=== PATIENT | female | born 1960 | race Caucasian/White ===

== ENCOUNTER 2019-07-26 05:13 | Inpatient (IN) ==
--- NOTE | 2019-07-26 05:33 | PROVIDER DOCUMENTATION ---
HPI-Respiratory General - General Chief Complaint: Cough Stated Complaint: cough/high blood sugar Time Seen by Provider: 07/26/19 05:16 Source: patient Allergies/Adverse Reactions: Patient Allergies Allergy/AdvReac Type Severity Reaction Status Date / Time aspirin Allergy Unknown Verified 07/26/19 06:21 cephalexin [From Keflex] Allergy Unknown Verified 07/26/19 06:21 codeine Allergy Unknown Verified 07/26/19 06:21 Penicillins Allergy Unknown Verified 07/26/19 06:21 perindopril [From Aceon] Allergy Unknown Verified 07/26/19 06:21 propoxyphene [From Darvon] Allergy Unknown Verified 07/26/19 06:21 pseudoephedrine Allergy Unknown Verified 07/26/19 06:21 [From Sudafed] sitagliptin [From Januvia] Allergy Unknown Verified 07/26/19 06:21 Sulfa (Sulfonamide Allergy Unknown Verified 07/26/19 06:21 Antibiotics) Home Medications: Home Medication List Medication Instructions Recorded Confirmed Last Taken Type ATORVAstatin [Lipitor] 10 mg PO DAILY 07/26/19 07/26/19 Unknown History Albuterol Sulfate [Ventolin Hfa] 18 gm INHALATION PRN PRN 07/26/19 07/26/19 Unknown History Apixaban [Eliquis] 5 mg PO BID 07/26/19 07/26/19 Unknown History Baclofen 20 mg PO QHS 07/26/19 07/26/19 Unknown History Budesonide/Formoterol Fumarate 10.2 gm INHALATION BID 07/26/19 07/26/19 Unknown History [Symbicort 160-4.5 Mcg Inhaler] Furosemide 40 mg PO DAILY 07/26/19 07/26/19 Unknown History Gabapentin 600 mg PO 5XDAY 07/26/19 07/26/19 Unknown History Insulin Glargine [Basaglar] 100 unit SUBQ DIRECTED 07/26/19 07/26/19 Unknown History Insulin Lispro [Admelog Solostar] 100 unit SQ DIRECTED 07/26/19 07/26/19 U nknown History Magnesium 250 mg PO DAILY 07/26/19 07/26/19 Unknown History Metoprolol Succinate E.r. [Toprol 12.5 mg PO DAILY 07/26/19 07/26/19 Unknown History Xl] Pantoprazole [Protonix] 40 mg PO DAILY@0700 07/26/19 07/26/19 Unknown History Potassium Chloride E.r. [Klor-Con] 10 meq PO BID 07/26/19 07/26/19 Unknown History Sacubitril/Valsartan [Entresto 49 1 ea PO BID 07/26/19 07/26/19 Unknown History mg-51 mg Tablet] Spironolactone 25 mg PO DAILY 07/26/19 07/26/19 Unknown History Sumatriptan Succinate 100 mg PO PRN PRN 07/26/19 07/26/19 Unknown History Topiramate 15 mg PO QAM 07/26/19 07/26/19 Unknown History Topiramate 50 mg PO BID 07/26/19 07/26/19 Unknown History - History of Present Illness-Resp Nature of Presenting Problem: Patient states that she has had a cough for the past 3 days. She has had fever. she has COPD but doesn't have a nebulizer. Her sugar has been high. She has been short of breath. Quality of Pain: reports: pressure Severity in ED: reports: moderate Onset/Duration: reports: 3 days ago Timing: reports: still present Context: denies: recent foreign travel, insect bite (possible tick), recent chemotherapy, multiple patients with similar complaints, recent URI, out of meds, sports/exercise, aspiration/choking, other Exposure: reports: unknown cause Cough Quality/Degree: reports: moderate, dry cough Episode Frequency: frequent episodes Current Respiratory Medication Therapy: Initiated none Modifying Factors: improves with: nothing Associated Symptoms: reports: fever/chills, flu-like symptoms, headache Similar Symptoms Previously?: No Recently seen or treated by another doctor?: No Review of Systems - Adult - REVIEW OF SYSTEMS - ADULT Constitutional: reports: fever Eyes: reports: no symptoms reported Ears, Nose, Mouth & Throat: reports: no symptoms reported Cardiovascular: reports: no symptoms reported Respiratory: reports: see HPI, cough, shortness of breath, wheezing Gastrointestinal: reports: no symptoms reported Genitourinary: reports: no symptoms reported Musculoskeletal: reports: no symptoms reported Integumentary: reports: no symptoms reported Neurological: reports: no symptoms reported Psychiatric: reports: no symptoms reported Hematologic/Lymphatic: reports: no symptoms reported Allergic/Immunologic: reports: no symptoms reported Past History - Adult - PAST MEDICAL HISTORY-ADULT Review of Records: reports: Old Records Reviewed, Nursing Assessment Review Physical Exam-General - CONSTITUTIONAL General Appearance: alert, mild distress - EYES Eyes: PERRL/EOMI, pink conjunctivae - HEAD, EARS, NOSE, MOUTH & THROAT HENMT: normocephalic/atraumatic, moist mucous membranes, normal ENT inspection - NECK Neck: non-tender, full range of motion, supple, normal inspection - RESPIRATORY Respiratory: chest non-tender, rales, rhonchi, wheezing - CARDIOVASCULAR Cardiovascular: normal peripheral pulses, regular rate, rhythm, no edema, no gallop - GASTROINTESTINAL (ABDOMEN) Abdominal Exam: normal bowel sounds, soft - LYMPHATIC Lymphatic: no adenopathy - MUSCULOSKELETAL Back Exam: normal inspection Extremity: normal range of motion - SKIN Integumentary: normal color, normal turgor - NEUROLOGIC Neurologic: grossly normal - PSYCHIATRIC Psych/Mental Status: normal mood/affect Progress - PLAN OF CARE/RESULTS Progress/Plan/Lab Results: Vital Signs - 8 hr 07/26/19 05:22 07/26/19 05:23 07/26/19 05:57 Temperature 98.3 F Pulse Rate 94 H 107 H Respiratory Rate 24 20 Blood Pressure 172/79 172/79 O2 Sat by Pulse Oximetry 86 L 92 L 91 L 07/26/19 05:50 - Final Sputum 07/26/19 05:52 Influenza Screen - Final Nasopharyngeal Laboratory Results - last 24 hr 07/26/19 07/26/19 07/26/19 05:21 05:36 05:45 WBC 9.93 RBC 4.37 Hgb 12.5 Hct 37.5 MCV 85.8 MCH 28.6 MCHC 33.3 RDW Std Deviation 12.4 Plt Count 321 MPV 11.0 H Immature Gran % (Auto) 0.3 Neut % (Auto) 68.9 Lymph % (Auto) 19.9 L [place] % (Auto) 9.4 H Eos % (Auto) 1.3 Baso % (Auto) 0.2 Immature Gran # (Auto) 0.03 Neut # (Auto) 6.84 H Lymph # (Auto) 1.98 [place] # (Auto) 0.93 H Eos # (Auto) 0.13 Baso # (Auto) 0.02 PT INR PTT (Actin FS) Specimen Type ARTERIAL Sample Site R RADIAL pH 7.37 pCO2 43 pO2 76 HCO3 24.4 Base Excess -0.6 Oxyhemoglobin 93.7 L ABG O2 Sat (Calculated) 17.4 ABG O2 Saturation 96.8 ABG Carboxyhemoglobin 2.00 ABG Methemoglobin 1.1 Yogi Test YES A-a O2 Difference 227.0 Total Hemoglobin 13.2 Lactate 2.10 Liter Flow 10.0 Blood Gas Modality COOL AEROSOL FiO2 % 50.0 Sodium Potassium Chloride Carbon Dioxide Anion Gap BUN Creatinine Estimated GFR/1.73 m2 BUN/Creatinine Ratio Glucose POC Glucose 330 H Calculated Osmolality Calcium Magnesium Total Bilirubin AST ALT Alkaline Phosphatase Creatine Kinase Troponin T High Sens Csd-N-Emmoodpgpio Pept Total Protein Albumin Globulin Albumin/Globulin Ratio Plasma Lactate Urine Source Urine Color Urine Turbidity Urine pH Ur Specific [place] Urine Protein Ur Glucose (Stick) Ur Ketones (Stick) Urine Blood Urine Nitrite Urine Bilirubin Urobilinogen Dipstick Urine Leukocytes Urine WBC (Auto) Urine RBC (Auto) U Epithel Cells (Auto) Urine Bacteria (Auto) Urine Opiates Screen Ur Oxycodone Screen Ur Methadone, Qual Ur Barbiturates Screen Ur Phencyclidine Scrn Ur Amphetamines Screen U Benzodiazepines Scrn Urine Cocaine Screen U Cannabinoids Screen 07/26/19 07/26/19 07/26/19 05:45 05:45 05:45 WBC RBC Hgb Hct MCV MCH MCHC RDW Std Deviation Plt Count MPV Immature Gran % (Auto) Neut % (Auto) Lymph % (Auto) [place] % (Auto) Eos % (Auto) Baso % (Auto) Immature Gran # (Auto) Neut # (Auto) Lymph # (Auto) [place] # (Auto) Eos # (Auto) Baso # (Auto) PT 14.1 INR 1.07 PTT (Actin FS) 23.2 Specimen Type Sample Site pH pCO2 pO2 HCO3 Base Excess Oxyhemoglobin ABG O2 Sat (Calculated) ABG O2 Saturation ABG Carboxyhemoglobin ABG Methemoglobin Yogi Test A-a O2 Difference Total Hemoglobin Lactate Liter Flow Blood Gas Modality FiO2 % Sodium 138 Potassium 4.7 Chloride 99 Carbon Dioxide 25 Anion Gap 14 BUN 17 Creatinine 0.5 Estimated GFR/1.73 m2 > 60 BUN/Creatinine Ratio 34 Glucose 344 H POC Glucose Calculated Osmolality 291 Calcium 9.1 Magnesium 1.6 Total Bilirubin 1.96 H AST 20 ALT 23 Alkaline Phosphatase 144 H Creatine Kinase 86 Troponin T High Sens 16 Lcr-U-Blewfeqklpm Pept Total Protein 6.0 L Albumin 3.6 Globulin 2.4 Albumin/Globulin Ratio 1.5 Plasma Lactate Urine Source Urine Color Urine Turbidity Urine pH Ur Specific [place] Urine Protein Ur Glucose (Stick) Ur Ketones (Stick) Urine Blood Urine Nitrite Urine Bilirubin Urobilinogen Dipstick Urine Leukocytes Urine WBC (Auto) Urine RBC (Auto) U Epithel Cells (Auto) Urine Bacteria (Auto) Urine Opiates Screen Ur Oxycodone Screen Ur Methadone, Qual Ur Barbiturates Screen Ur Phencyclidine Scrn Ur Amphetamines Screen U Benzodiazepines Scrn Urine Cocaine Screen U Cannabinoids Screen 07/26/19 07/26/19 07/26/19 05:45 05:45 06:42 WBC RBC Hgb Hct MCV MCH MCHC RDW Std Deviation Plt Count MPV Immature Gran % (Auto) Neut % (Auto) Lymph % (Auto) [place] % (Auto) Eos % (Auto) Baso % (Auto) Immature Gran # (Auto) Neut # (Auto) Lymph # (Auto) [place] # (Auto) Eos # (Auto) Baso # (Auto) PT INR PTT (Actin FS) Specimen Type Sample Site pH pCO2 pO2 HCO3 Base Excess Oxyhemoglobin ABG O2 Sat (Calculated) ABG O2 Saturation ABG Carboxyhemoglobin ABG Methemoglobin Yogi Test A-a O2 Difference Total Hemoglobin Lactate Liter Flow Blood Gas Modality FiO2 % Sodium Potassium Chloride Carbon Dioxide Anion Gap BUN Creatinine Estimated GFR/1.73 m2 BUN/Creatinine Ratio Glucose POC Glucose Calculated Osmolality Calcium Magnesium Total Bilirubin AST ALT Alkaline Phosphatase Creatine Kinase Troponin T High Sens Uim-M-Itoznjlgpxt Pept 5289 H Total Protein Albumin Globulin Albumin/Globulin Ratio Plasma Lactate 1.6 Urine Source CLEAN CATCH Urine Color YELLOW Urine Turbidity CLEAR Urine pH 6.0 Ur Specific [place] 1.041 Urine Protein 30 A Ur Glucose (Stick) >1000 A Ur Ketones (Stick) NEGATIVE Urine Blood NEGATIVE Urine Nitrite NEGATIVE Urine Bilirubin NEGATIVE Urobilinogen Dipstick 4 A Urine Leukocytes MODERATE A Urine WBC (Auto) TNTC A Urine RBC (Auto) <10 U Epithel Cells (Auto) <10 Urine Bacteria (Auto) 1+ Urine Opiates Screen Ur Oxycodone Screen Ur Methadone, Qual Ur Barbiturates Screen Ur Phencyclidine Scrn Ur Amphetamines Screen U Benzodiazepines Scrn Urine Cocaine Screen U Cannabinoids Screen 07/26/19 06:50 WBC RBC Hgb Hct MCV MCH MCHC RDW Std Deviation Plt Count MPV Immature Gran % (Auto) Neut % (Auto) Lymph % (Auto) [place] % (Auto) Eos % (Auto) Baso % (Auto) Immature Gran # (Auto) Neut # (Auto) Lymph # (Auto) [place] # (Auto) Eos # (Auto) Baso # (Auto) PT INR PTT (Actin FS) Specimen Type Sample Site pH pCO2 pO2 HCO3 Base Excess Oxyhemoglobin ABG O2 Sat (Calculated) ABG O2 Saturation ABG Carboxyhemoglobin ABG Methemoglobin Yogi Test A-a O2 Difference Total Hemoglobin Lactate Liter Flow Blood Gas Modality FiO2 % Sodium Potassium Chloride Carbon Dioxide Anion Gap BUN Creatinine Estimated GFR/1.73 m2 BUN/Creatinine Ratio Glucose POC Glucose Calculated Osmolality Calcium Magnesium Total Bilirubin AST ALT Alkaline Phosphatase Creatine Kinase Troponin T High Sens Qbp-G-Ffahinbalne Pept Total Protein Albumin Globulin Albumin/Globulin Ratio Plasma Lactate Urine Source Urine Color Urine Turbidity Urine pH Ur Specific [place] Urine Protein Ur Glucose (Stick) Ur Ketones (Stick) Urine Blood Urine Nitrite Urine Bilirubin Urobilinogen Dipstick Urine Leukocytes Urine WBC (Auto) Urine RBC (Auto) U Epithel Cells (Auto) Urine Bacteria (Auto) Urine Opiates Screen NONE DETECTED Ur Oxycodone Screen NONE DETECTED Ur Methadone, Qual NONE DETECTED Ur Barbiturates Screen NONE DETECTED Ur Phencyclidine Scrn NONE DETECTED Ur Amphetamines Screen NONE DETECTED U Benzodiazepines Scrn NONE DETECTED Urine Cocaine Screen NONE DETECTED U Cannabinoids Screen NONE DETECTED Orders Category Date Time Status Cardiac Monitoring DIRECTED Care 07/26/19 05:28 Active IV Insertion ORDERED Care 07/26/19 05:28 Completed Notify MD of + Sepsis Screen NOW Care 07/26/19 05:28 Active Notify Physician As Ordered Care 07/26/19 05:28 Active Nursing- Obtain EKG once Care 07/26/19 07:26 Active CHEST-1 VIEW [RAD] Stat Exams 07/26/19 05:28 Completed ABG [RESP] Routine Lab 07/26/19 05:36 Completed BLOOD CULTURE [BLDCUL] Stat Lab 07/26/19 05:48 Results CBC WITH DIFF [HEME] Stat Lab 07/26/19 05:45 Completed CK PROFILE [SP CHEM] Stat Lab 07/26/19 05:45 Completed COMPREHENSIVE METABOLIC PANEL [CHEM] Stat Lab 07/26/19 05:45 Completed Flu Swab [INFLUENZA SCREEN A/B] Stat Lab 07/26/19 05:52 Completed LACTATE, PLASMA [CHEM] Lab 07/26/19 05:45 Completed LACTATE, PLASMA [CHEM] Lab 07/26/19 08:30 Uncollected LACTATE, PLASMA [CHEM] Lab 07/26/19 11:30 Uncollected MAGNESIUM [CHEM] Stat Lab 07/26/19 05:45 Completed PRO B-NATRIURETIC PEPTIDE Stat Lab 07/26/19 05:45 Completed PROTIME WITH INR [COAG] Stat Lab 07/26/19 05:45 Completed PTT [COAG] Stat Lab 07/26/19 05:45 Completed SPUTUM CULTURE WITH GRAM STAIN [RM] Routine Lab 07/26/19 05:50 Results TROPONIN T HIGH SENSITIVITY Stat Lab 07/26/19 05:45 Completed URINALYSIS W/POSS RFLX CULT [URINALYSIS] Stat Lab 07/26/19 06:42 Completed URINE DRUG SCREEN Stat Lab 07/26/19 06:50 Completed 0.9% Sodium Chloride Inj [Ns] 1,000 ml Med 07/26/19 07:28 Active IV 999 mls/hr Albuterol 2.5MG/Ipratrop 0.5MG [Duoneb (A & A)] Med 07/26/19 05:36 Discontinued 3 ml INH NOW ONE Albuterol 2.5MG/Ipratrop 0.5MG [Duoneb (A & A)] Med 07/26/19 07:31 Discontinued 3 ml INH NOW ONE Furosemide [Lasix] Med 07/26/19 07:31 Discontinued 80 mg IV NOW ONE Insulin Human Regular [Humulin R] Med 07/26/19 07:28 Discontinued 10 unit IV NOW ONE Levofloxacin 750 mg/D5w [Levaquin 750 mg/D5w] Med 07/26/19 07:27 Active 750 mg in 150 ml IV NOW Morphine Med 07/26/19 07:33 Discontinued 2 mg IV NOW ONE Ondansetron [Zofran] Med 07/26/19 07:33 Discontinued 4 mg IV NOW ONE Vancomycin 1 gm/Ns Med 07/26/19 07:41 Active 1 gm in 250 ml IV NOW Aerosol Treatments Routine Oth 07/26/19 05:36 Completed Aerosol Treatments Routine Oth 07/26/19 07:31 Active Aerosol Treatments Stat Oth 07/26/19 05:36 Completed Aerosol Treatments Stat Oth 07/26/19 07:31 Active Oxygen Device Stat Oth 07/26/19 05:28 Completed EKG [EKG] Stat Ther 07/26/19 07:26 Ordered Result Diagrams: 07/26/19 05:45 07/26/19 05:45 - REASSESSMENT Reassessment #1 Time Reassessed: 07:32 Status: improving (Seen and examined by me. Case discussed with Dr. Murray at shift change, awaiting labs. Patient recently moved from [place], where her circulating process inspector took her off of lasix 3 months ago. Currently she is in mild respiratory distress, hypoxic, has RML pneumonia and CHF with pulmonary edema. She is not septic. Will give levaquin and lasix and duonebs and fluids and morphine/zofran. Will need admission) - EKG 1 Time of EKG reading by physician:: 07:50 EKG Read and Signed by:: Fernando Rich EKG Interpretation (*Must complete 3 of following elements*): Abnormal Rate: 78 Rhythm: NSR [place]: normal QRS: LBB, poor R wave progression NE Interval: normal ST Wave: normal - XRAY 1 XRAY Study: Chest Impression: Abnormal (read by me at 0730 = CM with volume overload/pulmonary edema. There is also a RML infiltrate.) - CONSULTS/PCP/HOSPITALIST Notification #1 *Consult/PCP/Hospitalist*: Hospitalist paged at 0734 Time Discussed: 07:42 (Ailyn) Consult Disposition: Will see in ED, Admit - CHANGE OF SHIFT REPORT (ED Provider) 1 Report Given and Care Transferred to:: Dr Rich Time of Transfer: 07:00 Items Pending: Labs Departure - Departure Date of Disposition Decision: 07/26/19 Time of Disposition Decision: 07:35 DIAGNOSIS: Respiratory distress Right middle lobe pneumonia Qualifiers: Pneumonia type: due to unspecified organism Qualified Code(s): J18.1 - Lobar pneumonia, unspecified organism Sepsis with acute organ dysfunction without septic shock Qualifiers: Sepsis type: sepsis due to unspecified organism Severe sepsis acute organ dysfunction type: acute respiratory failure Acute respiratory failure type: with hypoxia Qualified Code(s): A41.9 - Sepsis, unspecified organism Acute exacerbation of congestive heart failure Qualifiers: Heart failure type: combined systolic and diastolic Qualified Code(s): I50.43 - Acute on chronic combined systolic (congestive) and diastolic (congestive) heart failure Disposition: ADMITTED INPATIENT 09 Certified Medical Emergency: Emergent Condition: Fair Referrals and Follow-Ups: None,PCP [Primary Care Provider] - - Critical Care Note This patient required my direct & personal management of CC.: Yes Total Time (mins): 40 Critical Care Statement: This patient required my direct personal management to treat or rule out processes, the absence of which, could potentiallly result in sudden, clinically significant life or limb threatening deterioration. Attestation - Physician/ JUSTINO Attestation Patient care was provided by Advanced Practice Provider:: No The physician spent face to face time with patient:: Yes Advanced Practice Provider documentation review:: Supervising physician onsite and consulted in the evaluation and care of this patient. The physician did have a face to face encounter with the patient.
[2019-07-26] MEDS ORDERED: DUONEB (A & A) INH ONE ×2 (05:36→07:31)
[2019-07-26 06:04] LABS: ALLEN TEST YES; BE -0.6 mmoll (-3.0-3.0); BLOOD TYPE ARTERIAL; HCO3-(ACT) 24.4 mmoll (20.0-26.0); METHB 1.1 % (0.0-1.5); O2(CT) 17.4 mL/dL (15.0-23.0); O2HB 93.7 % (95.0-99.0); PCO2(98.6) 43 mmHg (35-45); PO2(98.6) 76 mmHg (60-100); SAMPLE BLOOD; SAO2 96.8 % (95.0-100.0); THB 13.2 g/dL (11.5-17.4); pH(98.6) 7.37 (7.35-7.45)
[2019-07-26 06:04] LABS: BASO# 0.02 X1000 (0.0-0.2); BASO% 0.2 % (0.0-0.8); EOS# 0.13 X1000 (0.0-0.7); EOS% 1.3 % (0.0-10.0); HEMATOCRIT 37.5 % (37.0-47.0); HEMOGLOBIN 12.5 g/dL (12.0-16.0); IMM GRAN# 0.03 X1000 (0.0-0.04); IMM GRAN% 0.3 % (0.0-0.5); LYMPH# 1.98 X1000 (1.2-3.4); LYMPH% 19.9 % (20.5-51.1); MCH 28.6 PG (27-31); MCHC 33.3 g/dL (33-37); MCV 85.8 FL (81-99); MONO# 0.93 X1000 (0.11-0.59); MONO% 9.4 % (1.7-9.3); NEUT# 6.84 X1000 (1.4-6.5); NEUT% 68.9 % (42.2-75.2); PLT 321 X1000 (130-400); RBC 4.37 XMIL (4.2-5.4); RDW 12.4 % (11.5-14.5); WBC 9.93 X1000 (4.8-10.8)
[2019-07-26 06:05] LABS: MODALITY COOL AEROSOL
[2019-07-26 06:19] LABS: INR 1.07; PROTIME 14.1 Seconds (11.0-16.0)
[2019-07-26 06:20] LABS: PTT 23.2 Seconds (22.3-41.8)
[2019-07-26 06:24] LABS: AGAP 14; ALB/GLOB RATIO 1.5; ALBUMIN 3.6 g/dL (3.5-5.0); ALKALINE PHOSPHATASE 144 U/L (32-104); BUN 17 mg/dL (8-22); CALCIUM 9.1 mg/dL (8.8-10.2); CHLORIDE 99 mmol/L (98-107); CK PROFILE 86 U/L (24-173); COSMO 291; CREATININE 0.5 mg/dL (0.5-0.9); ESTIMATED GFR > 60; GLUCOSE 344 mg/dL (70-104); GOT 20 U/L (10-30); GPT 23 U/L (10-36); MAGNESIUM 1.6 mg/dL (1.5-2.7); POTASSIUM 4.7 mmol/L (3.5-5.1); SODIUM 138 mmol/L (136-145); TCO2 25 mmol/L (25-35); TOTAL BILIRUBIN 1.96 mg/dL (0.20-1.00)
[2019-07-26 06:51] LABS: URINE SOURCE CLEAN CATCH
[2019-07-26 06:54] LABS: BILIRUBIN URINE NEGATIVE (NEGATIVE); BLOOD URINE NEGATIVE (NEGATIVE); COLOR YELLOW; GLUCOSE URINE >1000 mg/dL (NEGATIVE); KETONE URINE NEGATIVE (NEGATIVE); LEUKOCYTES URINE MODERATE (NEGATIVE); NITRITE URINE NEGATIVE (NEGATIVE); PROTEIN URINE 30 mg/dL (NEGATIVE); SP GRAVITY URINE 1.041; TURBIDITY URINE CLEAR (CLEAR); UROBILINOGEN URINE 4 mg/dL (NORMAL)
[2019-07-26 06:56] LABS: UR EPITHELIAL CELLS <10 /HPF (<10); URINE BACTERIA 1+ /HPF; URINE RBC <10 /HPF (<10); URINE WBC TNTC /HPF (<10)
[2019-07-26] MEDS ORDERED: LEVAQUIN 750 MG/D5W 750 MG/150 ML IVPB IV ONE (07:27)
[2019-07-26 07:28] LABS: UR AMPHETAMINES QUAL NONE DETECTED (NONE DETECT); UR BARBITUATES QUAL NONE DETECTED (NONE DETECT); UR BENZODIAZEPIN QUAL NONE DETECTED (NONE DETECT); UR CANNABINOIDS QUAL NONE DETECTED (NONE DETECT); UR COCAINE QUAL NONE DETECTED (NONE DETECT); UR METHADONE QUAL NONE DETECTED (NONE DETECT); UR OPIATES QUAL NONE DETECTED (NONE DETECT); UR OXYCODONE QUAL NONE DETECTED (NONE DETECT); UR PCP QUAL NONE DETECTED (NONE DETECT)
[2019-07-26] MEDS ORDERED: NS 1,000 ML IV ONE (07:28)
[2019-07-26] MEDS ORDERED: HUMULIN R IV ONE (07:28)
[2019-07-26] MEDS ORDERED: LASIX IV ONE (07:31)
[2019-07-26] MEDS ORDERED: ZOFRAN IV ONE (07:33)
[2019-07-26] MEDS ORDERED: MORPHINE IV ONE (07:33)
[2019-07-26] MEDS ORDERED: VANCOMYCIN 1 GM/NS 1 GM/250 ML IVPB IV ONE (07:41)
--- NOTE | 2019-07-26 07:48 | Diag Imaging Result Doc PS360 ---
EXAM: CHEST-1 VIEW INDICATION: SEPSIS TECHNIQUE: One view COMPARISON: None. FINDINGS: There are diffuse bilateral interstitial and airspace opacities with a perihilar predominance. This is most compatible with pulmonary edema. Superimposed pneumonia is possible in the right clinical scenario. There is no definite pleural fluid collection or pneumothorax. The central vasculature is prominent indicating pulmonary venous congestion. Cardiac silhouette is unremarkable. IMPRESSION: Bilateral pulmonary edema +/- pneumonia. Electronically signed by Jacky Vela 07/26/2019 7:46 AM
--- NOTE | 2019-07-26 08:34 | EKG Report ---
Test Performed on : 07/26/2019 07:47:39 AM Test Reason : sob Blood Pressure : / mmHG Vent. Rate : 078 BPM Atrial Rate : 078 BPM P-R Int : 130 ms QRS Dur : 122 ms QT Int : 416 ms P-R-T Axes : 030 -21 100 degrees QTc Int : 474 ms Normal sinus rhythm. Left bundle branch block Abnormal ECG No previous ECGs available Unconfirmed Result
[2019-07-26] MEDS ORDERED: DUONEB (A & A) INH PRN (10:34)
[2019-07-26] MEDS ORDERED: ZOFRAN IV PRN (10:34)
[2019-07-26] MEDS ORDERED: TOPAMAX PO PRN (10:34)
[2019-07-26] MEDS: SYMBICORT 160/4.5 MICROGM INHALER INH SCH ×2 (11:38→19:59)
[2019-07-26] MEDS: DUONEB (A & A) INH SCH ×4 (11:38→23:17)
[2019-07-26] MEDS: ENTRESTO 49 MG-51 MG TABLET PO SCH ×2 (12:34→20:25)
[2019-07-26] MEDS: KLOR-CON PO SCH ×2 (12:34→20:25)
[2019-07-26] MEDS: ELIQUIS PO SCH ×2 (12:34→20:25)
[2019-07-26] MEDS: SOLU-MEDROL IV SCH ×2 (12:34→18:27)
[2019-07-26] MEDS: LIPITOR PO SCH (12:35)
[2019-07-26] MEDS: TOPROL XL PO SCH (12:35)
[2019-07-26] MEDS: ALDACTONE PO SCH (12:35)
[2019-07-26] MEDS: MAG-OX PO SCH (12:35)
[2019-07-26] MEDS: HUMALOG SUBQ SCH ×3 (12:44→20:25)
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
[2019-07-26] MEDS: LASIX IV SCH (18:27)
[2019-07-26] MEDS: LIORESAL PO SCH (20:25)
[2019-07-26] MEDS ORDERED: LANTUS INSULIN SUBQ ONE (21:09)
--- NOTE | 2019-07-26 22:43 | HISTORY AND PHYSICAL ---
ADDENDUM: I have seen and examined Ms. Chaudhry today. Ms. Chaudh[place] is a [place], who has been down here for the past 3 weeks because according to her, the son has been employed to a facility over here. In any case, she refers that for the past 3 days, she has been having remarkable shortness of breath associated with orthopnea and PND. She came to the emergency room, was evaluated, and was found to be in congestive heart failure, severely hypoxemic, and has been admitted. Ms. Chaudhry has a history of COPD, not on any home oxygen, congestive heart failure, and also atrial fibrillation. CURRENT PHYSICAL EXAMINATION: General: Ms. Chaudhry is a 59-year-old, female. She is in bed. She does not seem to be in any distress. HEENT: Mucosa is pink and moist. Anicteric, acyanotic. Neck: Supple. There is positive JVD. Chest: Air entry is bilaterally reduced. Some wheezing and diffuse crackles in the posterior lung sanchez. Cardiovascular: Regular rate and rhythm. Gastrointestinal: Abdomen is soft. Extremities: No pedal edema. Central nervous system: Patient is awake, alert, and oriented. LABORATORY DATA: Also reviewed. Of note, the patient's glucose was 344. Urine was slightly dirty. Urine toxicology was unremarkable. IMAGING STUDIES: A chest x-ray shows bilateral pulmonary edema plus/minus pneumonia. An EKG shows a normal sinus rhythm, left axis deviation, poor R-wave progression. No acute ST-segment abnormality or T-wave abnormality. ASSESSMENT: 1. Acute hypoxemic respiratory failure, presumably from pulmonary edema with superimposed pneumonia. 2. Congestive heart failure, in exacerbation. 3. Chronic obstructive pulmonary disease, in exacerbation. 4. Remote history of atrial fibrillation. 5. Diabetes mellitus. PLAN: For now, we are going to continue with steroids, antibiotics, bronchodilation therapy, diuretics. The patient has also been started on her home medications. We will continue strict I's and O's, a healthy heart diet, and await for her echocardiogram. Depending on the results and her hospital course, we will consult other subspecialties for her care. Please refer to the details of the history and physical that has been dictated by the BUTCHER HEAD in the chart. I reviewed it and I have discussed the plan with her. cc: Jesse Yeung MD
[2019-07-26] MEDS ORDERED: HUMALOG SUBQ ONE (22:47)
[2019-07-27] MEDS: SOLU-MEDROL IV SCH ×3 (02:28→20:21)
[2019-07-27] MEDS: DUONEB (A & A) INH SCH ×6 (03:24→23:21)
[2019-07-27] MEDS: HUMALOG SUBQ SCH ×8 (06:21→20:20)
[2019-07-27] MEDS: PROTONIX PO SCH (06:21)
[2019-07-27 06:37] LABS: HEMATOCRIT 38.2 % (37.0-47.0); HEMOGLOBIN 12.6 g/dL (12.0-16.0); LYMPH# 0.64 X1000 (1.2-3.4); LYMPH% 9.4 % (20.5-51.1); MCH 28.6 PG (27-31); MCV 86.8 FL (81-99); MONO# 0.17 X1000 (0.11-0.59); MONO% 2.5 % (1.7-9.3); MPV 10.8 FL (7.4-10.4); NEUT# 5.98 X1000 (1.4-6.5); NEUT% 88.1 % (42.2-75.2); PLT 304 X1000 (130-400); RDW 12.3 % (11.5-14.5); WBC 6.79 X1000 (4.8-10.8)
[2019-07-27 07:29] LABS: AGAP 11; ALB/GLOB RATIO 1.2; ALBUMIN 3.6 g/dL (3.5-5.0); ALKALINE PHOSPHATASE 114 U/L (32-104); BUN 17 mg/dL (8-22); CHLORIDE 97 mmol/L (98-107); COSMO 294; CREATININE 0.6 mg/dL (0.5-0.9); ESTIMATED GFR > 60; GLUCOSE 330 mg/dL (70-104); GOT 19 U/L (10-30); GPT 21 U/L (10-36); LYMPHS 4 % (21-51); MAGNESIUM 1.8 mg/dL (1.5-2.7); MONO 2 % (1-9); POTASSIUM 4.6 mmol/L (3.5-5.1); SEGS 94 % (42-75); SODIUM 140 mmol/L (136-145); TCO2 32 mmol/L (25-35); TOTAL BILIRUBIN 1.12 mg/dL (0.20-1.00); TOTAL PROTEIN 6.7 g/dL (6.3-8.3)
[2019-07-27] MEDS: SYMBICORT 160/4.5 MICROGM INHALER INH SCH ×2 (07:43→20:14)
[2019-07-27] MEDS: TOPROL XL PO SCH (08:19)
[2019-07-27] MEDS: MAG-OX PO SCH (08:19)
[2019-07-27] MEDS: LIPITOR PO SCH (08:19)
[2019-07-27] MEDS: LEVAQUIN 500 MG in NS 100 ML IV SCH (08:19)
[2019-07-27] MEDS: LASIX IV SCH ×2 (08:19→17:05)
[2019-07-27] MEDS: ALDACTONE PO SCH (08:19)
[2019-07-27] MEDS: KLOR-CON PO SCH ×2 (08:19→20:20)
[2019-07-27] MEDS: ENTRESTO 49 MG-51 MG TABLET PO SCH ×2 (08:19→20:20)
[2019-07-27] MEDS: LANTUS INSULIN SUBQ SCH (08:20)
[2019-07-27] MEDS: ELIQUIS PO SCH ×2 (08:20→20:20)
[2019-07-27 08:47] LABS: HEMOGLOBIN A1C 9.2 % (4.8-6.0)
--- NOTE | 2019-07-27 10:45 | Diag Imaging Result Doc PS360 ---
EXAM: CHEST-2 VIEWS HISTORY: short of breath TECHNIQUE: Two views COMPARISON: 07/26/2019 FINDINGS: The lungs are better expanded on the current exam although there is basilar atelectasis which remains. There are small bilateral pleural effusions and there is pulmonary edema. The lung infiltrates are less pronounced on the current study. IMPRESSION: Interval improvement Electronically signed by Bhavin Burciaga 07/27/2019 10:43 AM
--- NOTE | 2019-07-27 11:06 | PROGRESS NOTE ---
DATE: 07/27/2019 SUBJECTIVE: This morning, Ms. Chaudhry refers to be doing fairly okay. Still has some wheeze and coughing, and remains on 6 L of supplemental oxygen. PHYSICAL EXAMINATION: General Examination: Ms. Chaudhry is a 59-year-old, female. She is in bed. Does not seem to be in cardiopulmonary distress. HEENT: Mucosa is pink and moist. Anicteric. Acyanotic. Neck: Supple. Chest: Air entry is bilaterally reduced. There is still diffuse and expiratory wheezing in both lung sanchez and a few crackles. Cardiovascular: Regular rate and rhythm. No murmurs, no rubs, no gallops. GI: Abdomen is soft. Distended but nontender. Bowel sounds present. Extremities: No pedal edema. Distal pulses present. STUDENT LIFE COORDINATOR: The patient is awake, alert, oriented. There is no focal deficit. Is and Os: Urine output was 4000. She is currently negative balance of 3110. Her weight is 203 from 212 on admission. Current Medications: Have all been reviewed. No changes. Laboratory Data: CBC is unremarkable. Chemistry shows the glucose was 330. The patient's A1c is 9.3. ProBNP has dropped down to 1358. No recent imaging studies. ASSESSMENT: 1. Acute hypoxemic respiratory failure secondary to as combination of pulmonary edema and chronic obstructive pulmonary disease exacerbation. 2. Congestive heart failure, presumably diastolic dysfunction. The patient continues to be on diuretics and home medications. We are pending an echocardiogram. 3. Chronic obstructive pulmonary disease, in exacerbation. Patient is on steroids, antibiotics, and bronchodilation therapy. 4. Remote history of atrial fibrillation, currently rate and rhythm controlled. 5. Uncontrolled diabetes mellitus with presenting A1c of 9.2. The patient is on an insulin regimen. 6. History of coronary artery disease, status post stenting. Patient is on Eliquis. She has a remote history of aspirin allergy. 7. History of cerebrovascular accident with mild weakness on the right side. 8. Obstructive sleep apnea. PLAN: In general, I think Ms. Chaudhry is doing well. She is fairly medically stable. She is still on supplemental oxygen. We are going to continue with the current antimicrobial coverage, steroids, and bronchodilation therapy. The patient is also on diuretics and an insulin regimen. We are going to repeat her chest x-ray for tomorrow morning. We are pending an echocardiogram. cc: Jesse Yeung MD
[2019-07-27] MEDS: TYLENOL PO PRN (19:23)
[2019-07-27] MEDS: LIORESAL PO SCH (20:21)
[2019-07-28] MEDS: DUONEB (A & A) INH SCH ×4 (03:56→17:08)
[2019-07-28] MEDS: TYLENOL PO PRN (04:18)
[2019-07-28 05:56] LABS: HEMATOCRIT 37.5 % (37.0-47.0); MCH 30.5 PG (27-31); MCHC 34.7 g/dL (33-37); MPV 10.8 FL (7.4-10.4); RBC 4.26 XMIL (4.2-5.4); RDW 12.5 % (11.5-14.5); WBC 10.91 X1000 (4.8-10.8)
[2019-07-28] MEDS: PROTONIX PO SCH (06:18)
[2019-07-28] MEDS: HUMALOG SUBQ SCH ×7 (06:18→16:43)
[2019-07-28 06:34] LABS: AGAP 11; ALBUMIN 3.1 g/dL (3.5-5.0); BUN 28 mg/dL (8-22); CALCIUM 8.5 mg/dL (8.8-10.2); CHLORIDE 93 mmol/L (98-107); COSMO 289; CREATININE 0.6 mg/dL (0.5-0.9); ESTIMATED GFR > 60; GLUCOSE 381 mg/dL (70-104); PHOSPHORUS 3.1 mg/dL (2.7-4.5); POTASSIUM 4.3 mmol/L (3.5-5.1); SODIUM 134 mmol/L (136-145); TCO2 30 mmol/L (25-35)
--- NOTE | 2019-07-28 08:11 | Diag Imaging Result Doc PS360 ---
EXAM: CHEST-2 VIEWS 07/28/2019 HISTORY: hypoxia TECHNIQUE: PA and lateral chest COMMENT: There are bilateral pleural effusions. There has been some increase on the left and decreased on the right since 07/27/2019. IMPRESSION: Waxing and waning pleural effusions. Electronically signed by Vijay Greene 07/28/2019 8:09 AM
[2019-07-28] MEDS: SYMBICORT 160/4.5 MICROGM INHALER INH SCH (08:13)
[2019-07-28] MEDS: SOLU-MEDROL IV SCH (08:30)
[2019-07-28] MEDS: ELIQUIS PO SCH (08:31)
[2019-07-28] MEDS: LIPITOR PO SCH (08:31)
[2019-07-28] MEDS: TOPROL XL PO SCH (08:31)
[2019-07-28] MEDS: LANTUS INSULIN SUBQ SCH (08:31)
[2019-07-28] MEDS: ALDACTONE PO SCH (08:31)
[2019-07-28] MEDS: ENTRESTO 49 MG-51 MG TABLET PO SCH (08:31)
[2019-07-28] MEDS: MAG-OX PO SCH (08:31)
[2019-07-28] MEDS: KLOR-CON PO SCH (08:31)
[2019-07-28] MEDS: LASIX IV SCH ×2 (08:31→16:42)
[2019-07-28] MEDS: LEVAQUIN 500 MG in NS 100 ML IV SCH (08:33)
[2019-07-28] MEDS ORDERED: LANTUS INSULIN SUBQ SCH (09:00)
--- NOTE | 2019-07-28 12:00 | ECHO REPORT ---
ORDER DATE: 07/26/2019 INTERPRETING PHYSICIAN: Dr. Guicho Correa. ECHOCARDIOGRAPHIC MEASUREMENTS: 1. Interventricular septum: 0.8 cm. 2. Left ventricular posterior wall: 0.7 cm. 3. Diastolic diameter: 5.9 cm. 4. Left atrium: 4.2 cm. 5. Aorta: 2.9 cm. SUMMARY OF THE 2-DIMENSIONAL IMAGIN. Mitral valve was normal. 2. Tricuspid valve was normal. 3. Aortic valve leaflets mildly sclerosed, not well visualized. 4. Pulmonic valve was normal. 5. There is moderate mitral regurgitation. 6. The left atrium was enlarged. 7. There is mild tricuspid regurgitation. Peak velocity across the tricuspid valve less than 2 m/sec. 8. Peak velocity across the aortic valve less than 2 m/sec by Doppler studies. There is no aortic stenosis or regurgitation. 9. Normal left ventricular cavity size with reduced systolic function. Estimated ejection fraction of 20 to 25 percent. There is diastolic dysfunction grade 2. 10. There is no pericardial effusion or obvious intracardiac mass or thrombus. cc: Guicho Correa MD
--- NOTE | 2019-07-28 14:45 | PROGRESS NOTE ---
DATE: 07/28/2019 SUBJECTIVE: This morning, Ms. Chaudhry is referred to be doing well. She denied any more wheezing. She said her shortness of breath has significantly improved. We are actually going to discharge her until we got back her results for the echocardiogram which shows that her ejection fraction is about 20 to 25 percent, also diastolic dysfunction grade 2, so we are going to get Cardiology to see her before she is discharged. OBJECTIVE: Current vitals: Blood pressure is 139/71, pulse of 68, respirations 16, temperature is 98.2 degrees. General exam: Ms. Chaudhry is a 59-year-old female. She is in bed. She is not in any cardiopulmonary distress. HEENT: Mucosa is pink and moist. Anicteric. Acyanotic. Neck: Supple. No JVD. Chest: Air entry is bilaterally reduced. Just faint wheezing in the posterior lung sanchez with a few bibasilar crackles. Cardiovascular: Regular rate and rhythm. There are no murmurs, no rubs, no gallops. GI/Abdomen: Soft, nontender. Bowel sounds present. Extremities: No pedal edema. Distal pulses present. GENERAL SCIENCE TEACHER: Patient is awake, alert, oriented. There is no focal deficit. LABORATORY DATA: WBC is 10.91. Rest of CBC is unremarkable. Chemistry is also reviewed. Glucose was 381. Sodium was 134. Rest of chemistry is unremarkable. So far, blood cultures have been 48 hours negative. The patient's influenza was also negative. X-RAY DATA: An echocardiogram which has just been reported shows an ejection fraction of 20 to 25 percent, and grade 2 diastolic dysfunctions. A chest x-ray this morning shows waxing and waning pleural effusions. ASSESSMENT: 1. Acute hypoxemic respiratory failure on presentation secondary to combination of pulmonary edema and chronic obstructive pulmonary disease exacerbation. 2. Congestive heart failure, presumably mixed (both systolic and diastolic). The patient's ejection fraction is reported to be 20 to 25 percent. We started her on diuretic therapy. We will also add losartan and low dose of Coreg, and we will get Cardiology to evaluate her. 3. Chronic obstructive pulmonary disease in exacerbation on admission. The patient's bronchospasms have significantly improved. She is still on steroids, antibiotic and bronchodilation therapy. 4. History of remote atrial fibrillation, currently rate and rhythm controlled. 5. Uncontrolled diabetes mellitus with presenting A1c of 9.2. The patient continues to be on insulin regimen. We will continue to titrate this. 6. History of coronary artery disease status post stenting in the past. 7. Remote history of cerebrovascular accident. 8. Obstructive sleep apnea. PLAN: So, in general, I think Ms. Chaudhry is doing well. Among her home medications is spironolactone and Entresto, which has already been started. She is also on metoprolol. We will consult Cardiology to evaluate her before she is discharged. Her EF as I said has just been reported to be 20 to 25 percent. Unsure if they would want to do any further cardiac workup before she is discharged. Ms. Chaudhry is also remarkably uncontrolled on her diabetes. However, we will continue to titrate her insulin. We have gone up on the glargine to 30 units this morning. We will continue the t.i.d. lispro to cover meals, and also sliding scale for the rest of her needs. Once we get the final recommendations from Cardiology, I think we can discharge Ms. Chaudhry whenever it is okay with Cardiology. DISCHARGE TIME 36 MINUTES cc: Jesse Yeung MD MTDD
--- NOTE | 2019-07-28 15:26 | EKG Report ---
Test Performed on : 07/28/2019 3:16:27 PM Test Reason : dyspnea, chf Blood Pressure : / mmHG Vent. Rate : 066 BPM Atrial Rate : 066 BPM P-R Int : 146 ms QRS Dur : 132 ms QT Int : 458 ms P-R-T Axes : 047 -28 167 degrees QTc Int : 480 ms Normal sinus rhythm. Left bundle branch block Abnormal ECG When compared with ECG of 26-JUL-2019 07:47, (Unconfirmed) T wave inversion now evident in Lateral leads Confirmed by Eduar FOSTER, Amrit Ferrera ([id number]) on 07/29/2019 6:15:00 PM
[2019-07-28 16:26] VITALS: BP 150/90
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
--- NOTE | 2019-07-29 14:19 | DISCHARGE SUMMARY ---
ADMISSION DATE: 07/26/2019 DISCHARGE DATE: 07/28/2019 DISPOSITION: Home. FOLLOWUP: Dr. Figueredo. CONSULTATIONS DURING THIS ADMISSION: Cardiology was consulted. The patient was seen by Dr. Figueredo. INVASIVE PROCEDURES DONE DURING THIS ADMISSION: None. IMAGING STUDIES OF SIGNIFICANCE: 1. A chest x-ray on admission did show bilateral pulmonary edema plus/minus pneumonia. 2. An echocardiogram shows an ejection fraction of 20% to 25%, grade 2 diastolic dysfunction. 3. A chest x-ray which was done a couple of days later showed interval improvement. 4. Chest x-ray this morning shows waxing and waning pleural effusions. ADMISSION DIAGNOSES: 1. Chronic obstructive pulmonary disease exacerbation. 2. Congestive heart failure exacerbation. 3. Diabetes mellitus with hyperglycemia. 4. Questionable urinary tract infection. 5. Coronary artery disease, status post stenting. DISCHARGE DIAGNOSES: 1. Acute hypoxemic respiratory failure on presentation. The patient continues to be on supplemental oxygen. 2. Congestive heart failure with an ejection fraction of 20% to 25% on recent echocardiogram. The patient has been evaluated by Cardiology. She continues to be on Entresto and metoprolol. 3. Chronic obstructive pulmonary disease in exacerbation, improved. 4. History of atrial fibrillation. 5. Uncontrolled diabetes mellitus with presenting A1c of 9.3. The patient has been started on insulin regimen. 6. History of coronary artery disease, status post stenting in the past. 7. Remote history of cerebrovascular accident. No deficits. 8. Obstructive sleep apnea. 9. Ischemic cardiomyopathy with ejection fraction of 20% to 25%. DISCHARGE MEDICATIONS: 1. Eliquis 5 mg b.i.d. 2. Baclofen 20 mg p.o. at bedtime. 3. Gabapentin 600 mg. 4. Pantoprazole 40 mg p.o. daily. 5. Spironolactone 25 mg p.o. daily. 6. Levofloxacin 500 p.o. daily. 7. Prednisone 20 mg p.o. daily. 8. Insulin Basaglar 55 units subcutaneously in the morning. 9. Entresto 1 tablet b.i.d. 10. Sotalol 120 mg b.i.d. 11. Topiramate 50 mg b.i.d. 12. Metoprolol 12.5 mg p.o. daily. 13. Insulin lispro 7 units subcutaneously 3 times per day. PRESENTING COMPLAINT: Shortness of breath, cough, high blood sugar. HISTORY OF PRESENTING COMPLAINT: Ms. Chaudhry is a 59-year-old, female, who I understand is a resident of [place], recently relocated to [facility] because her son has some job. She is currently living in a hotel. Presented because of worsening shortness of breath, cough, and elevated blood sugar. Upon presentation, she was evaluated and was found to be in acute hypoxemic respiratory failure with presenting O2 saturation of 86%. She was also found wheezing. She was thought to be in acute COPD exacerbation and possible congestive heart failure. Her proBNP on admission was 5289. Ms. Chaudhry was admitted to the [facility] for further medical care. HOSPITAL COURSE: Ms. Chaudhry was admitted and started on IV Lasix, antibiotics, bronchodilation therapy, and steroids. She was also started on insulin and her home medications for her other comorbidities. During the hospital cause, she continued to improve. She diuresed very adequately. She became negative balance of over 6000. She also lost about 10 pounds during the hospital course. She left with a weight of 202, and admitted with a weight of 212. This morning, she refers to be feeling a whole lot better. Her wheezing has significantly improved. X-rays have also shown improvement, and her proBNP has reduced. Ms. Chaudhry had an echocardiogram done on admission. However, we did not have the report until this morning. After the echo was reported that she had an ejection fraction of 20% to 25%, we consulted Cardiology, and the patient was seen by Dr. Figueredo. I personally spoke with Dr. Figueredo, who recommended that Ms. Chaudhry is clinically stable, and that she also has all her medications that she will need, and that she will need to follow up with him within a week in the office. Ms. Chaudhry is therefore being discharged in stable condition, and she will follow up with Dr. Figueredo. She does not have any primary care physician yet down here. She will be given a list to choose from and follow up while she is here. All the discharge instructions have been discussed with her, and she voiced understanding. TIME SPENT: Time spent for discharge is 38 minutes. cc: MD [place] MD
== END 2019-07-28 17:22 | disposition home health service (06) | DRG 189 ==
LOC: SUPCPDRO → ED 05:13 → EDIPHOLD 09:28 → SUATTDRO 09:28 → 2N 11:12
PROVIDERS: ATTEND Internal Medicine

== ENCOUNTER 2019-09-12 05:52 | Inpatient (IN) ==
[2019-09-12] MEDS ORDERED: DUONEB (A & A) INH ONE (06:10)
[2019-09-12] MEDS ORDERED: LASIX IV ONE ×2 (06:10→06:24)
[2019-09-12 06:33] LABS: ALLEN TEST YES; BLOOD TYPE ARTERIAL; HCO3-(ACT) 21.8 mmoll (20.0-26.0); METHB 0.4 % (0.0-1.5); O2(CT) 18.6 mL/dL (15.0-23.0); O2HB 95.6 % (95.0-99.0); PCO2(98.6) 46 mmHg (35-45); PO2(98.6) 85 mmHg (60-100); SAMPLE BLOOD; SAO2 98.2 % (95.0-100.0); THB 13.8 g/dL (11.5-17.4)
[2019-09-12 06:34] LABS: MODALITY CANNULA
--- NOTE | 2019-09-12 06:47 | PROVIDER DOCUMENTATION ---
HPI-Respiratory General - General Chief Complaint: Shortness of Breath Stated Complaint: difficulty breathing Time Seen by Provider: 09/12/19 06:08 Allergies/Adverse Reactions: Patient Allergies Allergy/AdvReac Type Severity Reaction Status Date / Time aspirin Allergy Unknown Verified 07/26/19 06:21 cephalexin [From Keflex] Allergy Unknown Verified 07/26/19 06:21 codeine Allergy Unknown Verified 07/26/19 06:21 Penicillins Allergy Unknown Verified 07/26/19 06:21 perindopril [From Aceon] Allergy Unknown Verified 07/26/19 06:21 propoxyphene [From Darvon] Allergy Unknown Verified 07/26/19 06:21 pseudoephedrine Allergy Unknown Verified 07/26/19 06:21 [From Sudafed] sitagliptin [From Januvia] Allergy Unknown Verified 07/26/19 06:21 Sulfa (Sulfonamide Allergy Unknown Verified 07/26/19 06:21 Antibiotics) Home Medications: Home Medication List Medication Instructions Recorded Confirmed Last Taken Type Apixaban [Eliquis] 5 mg PO BID 07/26/19 07/26/19 07/25/19 21:00 History Baclofen 20 mg PO QHS 07/26/19 07/26/19 07/25/19 21:00 History Budesonide/Formoterol Fumarate 10.2 gm INHALATION BID 07/26/19 07/26/19 07/23/19 History [Symbicort 160-4.5 Mcg Inhaler] Gabapentin 600 mg PO 5XDAY 07/26/19 07/26/19 07/25/19 21:00 History Magnesium 250 mg PO DAILY 07/26/19 07/26/19 07/25/19 09:00 History Pantoprazole [Protonix] 40 mg PO DAILY@0700 07/26/19 07/26/19 07/25/19 09:00 History Potassium Chloride E.r. [Klor-Con] 10 meq PO BID 07/26/19 07/26/19 07/25/19 21:00 History Sumatriptan Succinate 100 mg PO PRN PRN 07/26/19 07/26/19 Unknown History Topiramate 15 mg PO QAM 07/26/19 07/26/19 07/25/19 09:00 History ATORVAstatin [Lipitor] 10 mg PO DAILY #120 tab 07/28/19 Unknown Rx Insulin Glargine [Basaglar 55 unit SUBQ QAM #1 insuln.pen 07/28/19 Unknown Rx [Nonformulary]] Insulin Lispro [Admelog Solostar] 7 unit SQ TID #1 insuln.pen 07/28/19 Unknown Rx Levofloxacin 500 mg PO DAILY #5 tab 07/28/19 Unknown Rx Metoprolol Succinate E.r. [Toprol 12.5 mg PO DAILY #120 tab 07/28/19 Unknown Rx Xl] Prednisone 20 mg PO DAILY #5 tab 07/28/19 Unknown Rx Sacubitril/Valsartan [Entresto 49 1 ea PO BID #120 tab 07/28/19 Unknown Rx mg-51 mg Tablet] Sotalol HCl [Sotalol] 120 mg PO BID #120 tab 07/28/19 Unknown Rx Spironolactone 25 mg PO DAILY #120 tab 07/28/19 Unknown Rx Topiramate 50 mg PO BID #120 tab 07/28/19 Unknown Rx - History of Present Illness-Resp Nature of Presenting Problem: A 59 y/o female presents with c/o CP and SOB. The symptoms started this morning around 5:30 am. The SOB is associated with some CP, which is present behind her central chest. Has mild cough. Denies any significant symptoms till she woke up. Per EMS pt was saturating in 60's on her home 2L O2 and after the increased the rate to 6 liters and after nebs she has been in low 90's. Pt denies any fever or chills, has mild cough. Denies any nausea or vomiting or diarrhea. Her BS have been running high. Review of Systems - Adult - REVIEW OF SYSTEMS - ADULT Constitutional: denies: no symptoms reported Eyes: denies: no symptoms reported Ears, Nose, Mouth & Throat: denies: no symptoms reported Cardiovascular: reports: see HPI Respiratory: reports: see HPI Gastrointestinal: denies: no symptoms reported Genitourinary: denies: no symptoms reported Musculoskeletal: denies: no symptoms reported Integumentary: denies: no symptoms reported Neurological: denies: no symptoms reported Psychiatric: denies: no symptoms reported Endocrine: reports: see HPI Hematologic/Lymphatic: denies: no symptoms reported Allergic/Immunologic: denies: no symptoms reported All Other Systems: Reviewed and Negative Past History - Adult - PAST MEDICAL HISTORY-ADULT Review of Records: reports: Nursing Assessment Review, Medications Reviewed, Social history reviewed & non-contributory. Physical Exam-General - PHYSICAL EXAM-ADULT Initial Vital Signs Reviewed: Yes - CONSTITUTIONAL General Appearance: alert, moderate distress - EYES Eyes: PERRL/EOMI, pink conjunctivae - HEAD, EARS, NOSE, MOUTH & THROAT HENMT: moist mucous membranes, normal ENT inspection - NECK Neck: supple - RESPIRATORY Respiratory: respiratory distress, decreased breath sounds, accessory muscle use , crackles, rhonchi, increased rate - CARDIOVASCULAR Cardiovascular: no murmur, JVD, tachycardia, extra beats - GASTROINTESTINAL (ABDOMEN) Abdominal Exam: non tender, soft - MUSCULOSKELETAL Back Exam: no vertebral tenderness Extremity: non-tender, pedal edema Peripheral Pulses: dorsalis-pedis (R): 2+, dorsalis-pedis (L): 2+ - SKIN Integumentary: warm/dry - NEUROLOGIC Neurologic: grossly normal - PSYCHIATRIC Psych/Mental Status: normal mood/affect, normal thought content Progress - PLAN OF CARE/RESULTS Progress/Plan/Lab Results: Vital Signs - 8 hr 09/12/19 06:14 09/12/19 06:30 09/12/19 07:14 Temperature 97.9 F Pulse Rate 107 H 100 H 80 Respiratory Rate 22 32 H 21 Blood Pressure 161/123 135/77 O2 Sat by Pulse Oximetry 98 98 100 09/12/19 06:45 Influenza Screen - Final Nasopharyngeal Laboratory Results - last 24 hr 09/12/19 09/12/19 09/12/19 06:20 06:45 06:45 WBC RBC Hgb Hct MCV MCH MCHC RDW Std Deviation Plt Count MPV Immature Gran % (Auto) Neut % (Auto) Lymph % (Auto) [place] % (Auto) Eos % (Auto) Baso % (Auto) Immature Gran # (Auto) Neut # (Auto) Lymph # (Auto) [place] # (Auto) Eos # (Auto) Baso # (Auto) PT 14.0 INR 1.07 PTT (Actin FS) 24.8 Specimen Type ARTERIAL Sample Site R RADIAL pH 7.30 L pCO2 46 H pO2 85 HCO3 21.8 Base Excess -4.0 L Oxyhemoglobin 95.6 ABG O2 Sat (Calculated) 18.6 ABG O2 Saturation 98.2 ABG Carboxyhemoglobin 2.20 ABG Methemoglobin 0.4 Yogi Test YES A-a O2 Difference 171.0 Total Hemoglobin 13.8 Lactate 3.40 H Liter Flow 6.0 Blood Gas Modality CANNULA FiO2 % 44.0 Sodium 142 Potassium 4.7 Chloride 101 Carbon Dioxide 26 Anion Gap 15 BUN 22 Creatinine 0.8 Estimated GFR/1.73 m2 > 60 BUN/Creatinine Ratio 28 Glucose 395 H Calculated Osmolality 303 Calcium 8.9 Total Bilirubin 0.91 AST 37 H ALT 33 Alkaline Phosphatase 169 H Troponin T High Sens Xtf-D-Otzxnhzjyiy Pept Total Protein 6.1 L Albumin 4.0 Globulin 2.1 Albumin/Globulin Ratio 1.9 Plasma Lactate Urine Source Urine Color Urine Turbidity Urine pH Ur Specific Ary Urine Protein Ur Glucose (Stick) Ur Ketones (Stick) Urine Blood Urine Nitrite Urine Bilirubin Urobilinogen Dipstick Urine Leukocytes Urine WBC (Auto) Urine RBC (Auto) U Epithel Cells (Auto) Urine Bacteria (Auto) 09/12/19 09/12/19 09/12/19 06:45 06:45 06:45 WBC 17.36 H RBC 4.86 Hgb 13.5 Hct 41.9 MCV 86.2 MCH 27.8 MCHC 32.2 L RDW Std Deviation 13.4 Plt Count 339 MPV 11.3 H Immature Gran % (Auto) 0.3 Neut % (Auto) 88.3 H Lymph % (Auto) 5.2 L [place] % (Auto) 5.6 Eos % (Auto) 0.5 Baso % (Auto) 0.1 Immature Gran # (Auto) 0.05 H Neut # (Auto) 15.33 H Lymph # (Auto) 0.91 L [place] # (Auto) 0.97 H Eos # (Auto) 0.08 Baso # (Auto) 0.02 PT INR PTT (Actin FS) Specimen Type Sample Site pH pCO2 pO2 HCO3 Base Excess Oxyhemoglobin ABG O2 Sat (Calculated) ABG O2 Saturation ABG Carboxyhemoglobin ABG Methemoglobin Yogi Test A-a O2 Difference Total Hemoglobin Lactate Liter Flow Blood Gas Modality FiO2 % Sodium Potassium Chloride Carbon Dioxide Anion Gap BUN Creatinine Estimated GFR/1.73 m2 BUN/Creatinine Ratio Glucose Calculated Osmolality Calcium Total Bilirubin AST ALT Alkaline Phosphatase Troponin T High Sens 29 H Uex-L-Kgsbumvhceo Pept 2603 H Total Protein Albumin Globulin Albumin/Globulin Ratio Plasma Lactate Urine Source Urine Color Urine Turbidity Urine pH Ur Specific Ary Urine Protein Ur Glucose (Stick) Ur Ketones (Stick) Urine Blood Urine Nitrite Urine Bilirubin Urobilinogen Dipstick Urine Leukocytes Urine WBC (Auto) Urine RBC (Auto) U Epithel Cells (Auto) Urine Bacteria (Auto) 09/12/19 09/12/19 06:45 06:45 WBC RBC Hgb Hct MCV MCH MCHC RDW Std Deviation Plt Count MPV Immature Gran % (Auto) Neut % (Auto) Lymph % (Auto) [place] % (Auto) Eos % (Auto) Baso % (Auto) Immature Gran # (Auto) Neut # (Auto) Lymph # (Auto) [place] # (Auto) Eos # (Auto) Baso # (Auto) PT INR PTT (Actin FS) Specimen Type Sample Site pH pCO2 pO2 HCO3 Base Excess Oxyhemoglobin ABG O2 Sat (Calculated) ABG O2 Saturation ABG Carboxyhemoglobin ABG Methemoglobin Yogi Test A-a O2 Difference Total Hemoglobin Lactate Liter Flow Blood Gas Modality FiO2 % Sodium Potassium Chloride Carbon Dioxide Anion Gap BUN Creatinine Estimated GFR/1.73 m2 BUN/Creatinine Ratio Glucose Calculated Osmolality Calcium Total Bilirubin AST ALT Alkaline Phosphatase Troponin T High Sens Epm-W-Zmbicirgntj Pept Total Protein Albumin Globulin Albumin/Globulin Ratio Plasma Lactate 3.1 H Urine Source CATH Urine Color YELLOW Urine Turbidity CLEAR Urine pH 6.0 Ur Specific Ary 1.018 Urine Protein 100 A Ur Glucose (Stick) >1000 A Ur Ketones (Stick) NEGATIVE Urine Blood SMALL A Urine Nitrite NEGATIVE Urine Bilirubin NEGATIVE Urobilinogen Dipstick NORMAL Urine Leukocytes NEGATIVE Urine WBC (Auto) <10 Urine RBC (Auto) <10 U Epithel Cells (Auto) <10 Urine Bacteria (Auto) NEGATIVE Orders Category Date Time Status Cardiac Monitoring NOW Care 09/12/19 06:54 Active Britt Cath Insertion ORDERED Care 09/12/19 07:02 Active NEWS Score >or=5:Order NEWS Bundle S.O. NOW Care 09/12/19 06:24 Active Notify Provider of NEWS Score NOW Care 09/12/19 06:54 Active CHEST-1 VIEW [RAD] Stat Exams 09/12/19 06:09 Completed ABG [RESP] Routine Lab 09/12/19 06:20 Completed BLOOD CULTURE [BLDCUL] Stat Lab 09/12/19 06:26 Results CBC WITH ELECTRONIC DIFF [HEME] Stat Lab 09/12/19 06:45 Completed CK PROFILE [SP CHEM] Stat Lab 02/28/20 06:45 Results COMPREHENSIVE METABOLIC PANEL [CHEM] Stat Lab 09/12/19 06:45 Results INFLUENZA SCREEN A/B Stat Lab 09/12/19 06:45 Completed Ketone [ACETONE SERUM] [CHEM] Stat Lab 09/12/19 07:49 Ordered LACTATE, PLASMA [CHEM] Lab 09/12/19 10:00 Uncollected LACTATE, PLASMA [CHEM] Lab 09/12/19 13:00 Uncollected LACTATE, PLASMA [CHEM] Q3H Lab 09/12/19 06:45 Completed PRO B-NATRIURETIC PEPTIDE Stat Lab 09/12/19 06:45 Completed PROTIME WITH INR [COAG] Stat Lab 09/12/19 06:45 Completed PTT [COAG] Stat Lab 09/12/19 06:45 Completed TROPONIN T HIGH SENSITIVITY Stat Lab 09/12/19 06:45 Completed URINALYSIS W/POSS RFLX CULT [URINALYSIS] Stat Lab 09/12/19 06:45 Completed Albuterol 2.5MG/Ipratrop 0.5MG [Duoneb (A & A)] Med 09/12/19 06:10 Discontinued 3 ml INH NOW ONE Furosemide [Lasix] Med 09/12/19 06:10 Discontinued 40 mg IV NOW ONE Furosemide [Lasix] Med 09/12/19 06:24 Discontinued 40 mg IV NOW ONE Insulin Human Regular [Humulin R] Med 09/12/19 07:29 Discontinued 8 unit SUBQ NOW ONE Levofloxacin 750 mg/D5w [Levaquin 750 mg/D5w] Med 09/12/19 07:36 Active 750 mg in 150 ml IV NOW Vancomycin 1 gm/Ns Med 09/12/19 07:36 Active 1 gm in 250 ml IV NOW Aerosol Treatments Routine Oth 09/12/19 06:10 Completed Aerosol Treatments Stat Oth 09/12/19 06:10 Completed BIPAP Stat Oth 09/12/19 06:11 Active O2 Per Protocol Stat Oth 09/12/19 06:54 Active EKG [EKG] Stat Ther 09/12/19 05:55 Draft Result Diagrams: 09/12/19 06:45 09/12/19 06:45 - REASSESSMENT Reassessment #1 Time Reassessed: 07:38 Status: improving (Seen and examined by me. Case discussed with Dr. Elam at shift change. Picture is definitely that of CHF/flash pulmonary edema, however, patient's vitals, lactate and WBC are consistent with Sepsis. Patient's lactate is less than 4 and there is no hypotension, so will hold off on the IVF bolus at this time.) - EKG 1 Time of EKG reading by physician:: 05:55 EKG Interpretation (*Must complete 3 of following elements*): Abnormal Rate: 116 Rhythm: Sinus tachy with multiple PVC's QRS: LBB ST Wave: non-specific ST changes Prior EKG Comparison: unchanged from prior - XRAY 1 XRAY Study: Chest Impression: Abnormal, See EMR Report ( EXAM: CHEST-1 VIEW HISTORY: SOB TECHNIQUE: Single view COMPARISON: 07/28/2019 FINDINGS: The heart is enlarged and there is pulmonary edema. There is a small left pleural effusion and there may be a small right pleural effusion as well. There is left basilar atelectasis. IMPRESSION: Cardiomegaly with pulmonary edema and effusions consistent with congestive failure Electronically signed by Bhavin Burciaga 09/12/2019 7:17 AM 09/12/19716 Interpreting Physician: Bhavin Burciaga MD Dictated Date/Time: 09/12/19716 cc: Re Elam MD;) - CONSULTS/PCP/HOSPITALIST Notification #1 *Consult/PCP/Hospitalist*: GARRY Desai paged at [phone] Time Discussed: 07:51 (Dr. Gaitan answered, states Dr. Solis will admit patient) Consult Disposition: Admit - CHANGE OF SHIFT REPORT (ED Provider) 1 Report Given and Care Transferred to:: Dr Rich Time of Transfer: 07:00 Items Pending: Labs, XRAY Results Comment: Possible admission Departure - Departure Date of Disposition Decision: 09/12/19 Time of Disposition Decision: 07:41 DIAGNOSIS: Respiratory distress Acute exacerbation of congestive heart failure Qualifiers: Heart failure type: diastolic Qualified Code(s): I50.33 - Acute on chronic diastolic (congestive) heart failure Chest pain Qualifiers: Chest pain type: chest pain on breathing Qualified Code(s): R07.1 - Chest pain on breathing Uncontrolled diabetes mellitus Qualifiers: Diabetes mellitus type: type 2 Glycemic state: with hyperglycemia Qualified Code(s): E11.65 - Type 2 diabetes mellitus with hyperglycemia Sepsis with acute organ dysfunction Qualifiers: Sepsis type: sepsis due to unspecified organism Severe sepsis acute organ dysfunction type: acute respiratory failure Acute respiratory failure type: with hypoxia Severe sepsis shock status: without septic shock Qualified Code(s): A41.9 - Sepsis, unspecified organism Disposition: ADMITTED INPATIENT 09 Certified Medical Emergency: Emergent Condition: Critical - Critical Care Note This patient required my direct & personal management of CC.: Yes Total Time (mins): 45 Critical Care Statement: This patient required my direct personal management to treat or rule out processes, the absence of which, could potentiallly result in sudden, clinically significant life or limb threatening deterioration. Attestation - Physician/ JUSTINO Attestation Patient care was provided by Advanced Practice Provider:: No The physician spent face to face time with patient:: Yes Advanced Practice Provider documentation review:: Supervising physician onsite and consulted in the evaluation and care of this patient. The physician did have a face to face encounter with the patient.
[2019-09-12 07:08] LABS: BASO# 0.02 X1000 (0.0-0.2); BASO% 0.1 % (0.0-0.8); EOS# 0.08 X1000 (0.0-0.7); EOS% 0.5 % (0.0-10.0); HEMATOCRIT 41.9 % (37.0-47.0); HEMOGLOBIN 13.5 g/dL (12.0-16.0); IMM GRAN# 0.05 X1000 (0.0-0.04); IMM GRAN% 0.3 % (0.0-0.5); LYMPH# 0.91 X1000 (1.2-3.4); LYMPH% 5.2 % (20.5-51.1); MCH 27.8 PG (27-31); MCHC 32.2 g/dL (33-37); MCV 86.2 FL (81-99); MONO# 0.97 X1000 (0.11-0.59); MONO% 5.6 % (1.7-9.3); MPV 11.3 FL (7.4-10.4); NEUT# 15.33 X1000 (1.4-6.5); NEUT% 88.3 % (42.2-75.2); PLT 339 X1000 (130-400); RBC 4.86 XMIL (4.2-5.4); RDW 13.4 % (11.5-14.5); WBC 17.36 X1000 (4.8-10.8)
[2019-09-12 07:12] LABS: INR 1.07
[2019-09-12 07:14] LABS: URINE SOURCE CATH
[2019-09-12 07:18] LABS: BILIRUBIN URINE NEGATIVE (NEGATIVE); BLOOD URINE SMALL (NEGATIVE); COLOR YELLOW; GLUCOSE URINE >1000 mg/dL (NEGATIVE); KETONE URINE NEGATIVE (NEGATIVE); LEUKOCYTES URINE NEGATIVE (NEGATIVE); NITRITE URINE NEGATIVE (NEGATIVE); PROTEIN URINE 100 mg/dL (NEGATIVE); SP GRAVITY URINE 1.018; TURBIDITY URINE CLEAR (CLEAR); UR EPITHELIAL CELLS <10 /HPF (<10); URINE BACTERIA NEGATIVE /HPF; URINE RBC <10 /HPF (<10); URINE WBC <10 /HPF (<10); UROBILINOGEN URINE NORMAL (NORMAL)
--- NOTE | 2019-09-12 07:20 | Diag Imaging Result Doc PS360 ---
EXAM: CHEST-1 VIEW HISTORY: SOB TECHNIQUE: Single view COMPARISON: 07/28/2019 FINDINGS: The heart is enlarged and there is pulmonary edema. There is a small left pleural effusion and there may be a small right pleural effusion as well. There is left basilar atelectasis. IMPRESSION: Cardiomegaly with pulmonary edema and effusions consistent with congestive failure Electronically signed by Bhavin Burciaga 09/12/2019 7:17 AM
[2019-09-12 07:29] LABS: PTT 24.8 Seconds (22.3-41.8)
[2019-09-12] MEDS ORDERED: HUMULIN R SUBQ ONE (07:29)
[2019-09-12] MEDS ORDERED: LEVAQUIN 750 MG/D5W 750 MG/150 ML IVPB IV ONE (07:36)
[2019-09-12] MEDS ORDERED: VANCOMYCIN 1 GM/NS 1 GM/250 ML IVPB IV ONE (07:36)
[2019-09-12 07:39] LABS: AGAP 15; ALB/GLOB RATIO 1.9; ALKALINE PHOSPHATASE 169 U/L (32-104); BUN 22 mg/dL (8-22); CALCIUM 8.9 mg/dL (8.8-10.2); CHLORIDE 101 mmol/L (98-107); COSMO 303; CREATININE 0.8 mg/dL (0.5-0.9); ESTIMATED GFR > 60; GLUCOSE 395 mg/dL (70-104); GOT 37 U/L (10-30); GPT 33 U/L (10-36); POTASSIUM 4.7 mmol/L (3.5-5.1); SODIUM 142 mmol/L (136-145); TCO2 26 mmol/L (25-35); TOTAL BILIRUBIN 0.91 mg/dL (0.20-1.00); TOTAL PROTEIN 6.1 g/dL (6.3-8.3)
--- NOTE | 2019-09-12 07:39 | EKG Report ---
Test Performed on : 09/12/2019 05:55:47 AM Test Reason : ED. NO EKG ORDER FOR MUSE Blood Pressure : / mmHG Vent. Rate : 116 BPM Atrial Rate : 116 BPM P-R Int : 156 ms QRS Dur : 126 ms QT Int : 352 ms P-R-T Axes : 041 -31 127 degrees QTc Int : 489 ms Sinus tachycardia. with frequent premature ventricular complexes. Left axis deviation Left bundle branch block Abnormal ECG When compared with ECG of 28-JUL-2019 15:16, premature ventricular complexes. are now present Vent. rate has increased BY 50 BPM Nonspecific T wave abnormality no longer evident in Inferior leads T wave inversion less evident in Anterolateral leads Unconfirmed Result
[2019-09-12 07:51] LABS: CK PROFILE 192 U/L (24-173)
[2019-09-12 08:19] LABS: CK INDEX 3.6 (0.0-2.5); CK-MB 6.92 ng/mL (0.0-5.0)
[2019-09-12] MEDS ORDERED: INVOKANA PO ONE (08:26)
--- NOTE | 2019-09-12 08:26 | SEPSIS: TISSUE PERFUSION ASSMT ---
Sepsis: Tissue Perfusion Assmt - Physical Exam Assessment Date: 09/12/19 Time Assessment Initialized: 08:15 Vital Signs: Last Vital Signs Temp 97.9 F 09/12/19 06:14 Pulse 80 09/12/19 07:14 Resp 21 09/12/19 07:14 BP 135/77 09/12/19 07:14 Pulse Ox 100 09/12/19 07:14 Height 5 ft 3 in Weight 95.254 kg Lung Sounds: crackles, diminished Heart Sounds: Regular Capillary Refill Time: Less Than 2 Seconds Peripheral Pulse Evaluation: radial (R): 2+, radial (L): 2+, dorsalis-pedis (R): 2+, dorsalis-pedis (L): 2+, posterior tibialis (R): 2+, posterior tibialis (L): 2+ Skin Exam: pink - Alternative Fluid Bolus Bolus Option: Alternative Fluid Resuscitation Bolus for morbidly obese patients with a BMI >30, Refer to [place] Body Weight Chart for Reference. Is patient's BMI >30?: Yes Fluid Bolus dosed using the [place] Body Weight Chart: No (Patient is also in CHF.) - Impression Impression: Tissue Perfusion Adequate
[2019-09-12] MEDS ORDERED: LANTUS INSULIN SUBQ SCH (09:00)
[2019-09-12] MEDS ORDERED: TOPROL XL PO SCH (09:00)
--- NOTE | 2019-09-12 09:30 | HISTORY AND PHYSICAL ---
CHIEF COMPLAINT: Sudden onset shortness of breath. 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 When EMS arrived, her oxygen saturation was 60% so she was started on 6 L nasal cannula, following which oxygen saturation improved to 90%. In the emergency room, she was started on BiPAP. On presentation, her temperature was 97.9 degrees, pulse of 107, respiratory rate of 32, and oxygen saturation on BiPAP was at 98%. Her initial lab evaluation had leukocytosis and elevated proBNP, so Hospitalist team was consulted for further management. The patient is on BiPAP at the time of my evaluation and is a poor historian. She states that she has had some chills since the last few days and has had occasional nonproductive cough, but she was fairly functional until yesterday evening. This morning when she woke up at about 4:30 because of shortness of breath, she was finding it difficult to breathe so EMS was called. She denies any nausea, vomiting. She is also complaining of some substernal chest discomfort because of shortness of breath and cough. She states she has not been able to take her Lasix because she never could refill the prescription. On review of the previous record, I learned that she was discharged on 07/28/2019 with similar diagnosis of chronic obstructive pulmonary disease exacerbation, CHF exacerbation, and was advised to remain on spironolactone, but it seems that she has not been taking those medications. REVIEW OF SYSTEMS: Positive for shortness of breath. Positive for dry cough. Positive for headache. Negative for nausea. Negative for vomiting. Negative for abdominal pain. Negative for blurring of vision. Negative for ringing in the ears. Negative for burning in urination. Negative for diarrhea or constipation. PAST MEDICAL HISTORY: 1. Paroxysmal atrial fibrillation. 2. Chronic systolic and diastolic congestive heart failure with ejection fraction of 20% and grade 2 diastolic dysfunction. 3. 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 4. Insulin-dependent diabetes mellitus type 2. 5. Chronic migraine. 6. Chronic GERD. 7. Myocardial infarction requiring stent in 1995. 8. Diabetic neuropathy. 9. CVA in 2009, status post right upper and lower extremity weakness which she uses a cane and walker. 10. Obstructive sleep apnea on CPAP. 11. Frequent UTIs. PAST SURGICAL HISTORY: 1. Right finger, right wrist, right knee surgeries. 2. Cholecystectomy. 3. Appendectomy. 4. Loop recorder placed 4 years ago. SOCIAL HISTORY: She is from [place]. She moved to [place] with son and [id number] a couple of months ago. She was an ex-smoker which she quit and she smoked 1 pack a day for 6 years and she quit around 1989. She has had lifelong secondhand smoke exposure. She denies alcohol or recreational substance use. FAMILY HISTORY: Father had coronary artery bypass grafting 3 times. Mother with lung cancer. Brother had lung cancer. Sister with leukemia who is . Sister disease with an PR and another brother with muscular dystrophy. ALLERGIES: Aspirin, Keflex, codeine, penicillin, Aceon, Darvon, Sudafed, Januvia and sulfa allergy, all causes rash. HOME MEDICATIONS: According to previous discharge summary, the patient is supposed to be on: 1. Eliquis 5 mg b.i.d. 2. Baclofen 20 mg at nighttime. 3. Gabapentin 600 mg. 4. Pantoprazole 40 mg daily. 5. Spironolactone 25 mg daily. 6. Levofloxacin 500 mg daily. 7. Prednisone 20 mg daily. 8. Insulin Basaglar 55 units subcutaneous in the morning. 9. Entresto 1 tablet b.i.d. 10. Sotalol 120 mg b.i.d. 11. Topiramate 50 mg b.i.d. 12. Metoprolol 12.5 mg daily. 13. Insulin lispro 7 units subcutaneous 3 times a day. CURRENT VITAL SIGNS: Temperature of 97.9 degrees, pulse 80, respiratory 21, blood pressure 131/77, saturation 100% on 40% BiPAP. PHYSICAL EXAMINATION: GENERAL: Not in acute distress. HEENT: Oral cavity is moist. RESPIRATORY: She has decreased air entry with inspiratory crackles in bilateral lung sanchez. Air entry is significantly decreased in bilateral infrascapular region. She has crackles all throughout the lungs. CARDIOVASCULAR: S1, S2 normal. Regular. No murmur, rub or gallop. ABDOMEN: Soft, nontender. NECK: No jugular venous distention. EXTREMITIES: She has lower extremity edema affecting bilateral knees. NEUROLOGIC: She is alert and oriented x3. She was able to reposition and follow all commands during my encounter. GENITOURINARY: She has a urine catheter. LABORATORY DATA: Suggestive of leukocytosis of 17,000, hemoglobin 13.5, platelet 239,000. pH of 7.3, pCO2 of 46, lactate of 3.40. She has hyperglycemia with glucose of 395, BUN 22, creatinine 0.8. ProBNP 2600. Troponin is 29. Lactic acidosis 3.1. Urinalysis has glucosuria, but it was negative for ketones. MICROBIOLOGY: Influenza screen on presentation was negative. Blood cultures are in lab. IMAGING: Chest x-ray suggests bilateral cardiomegaly with pulmonary edema and bilateral pleural effusion. Electrocardiogram had sinus tachycardia with left bundle branch block and frequent premature ventricular contractions. ASSESSMENT: 1. Acute hypoxic, hypercapnic respiratory failure. 2. Acute systolic and diastolic combined congestive heart failure due to noncompliance with medications. 3. Acute pulmonary edema and bilateral pleural effusion due to acute congestive heart failure exacerbation. 4. Sepsis due to left lower lobe pneumonia. On encounter, she did have adequate tissue perfusion with pink skin, intact bilateral radial, dorsalis pedis and posterior tibial pulses and capillary refill time less than 2 seconds. 5. Elevated troponin in the setting of acute congestive heart failure. 6. History of paroxysmal atrial fibrillation. 7. Uncontrolled insulin-dependent diabetes mellitus type 2. 8. History of cerebrovascular accident, obstructive sleep apnea, chronic migraines. PLAN: 1. I will follow up blood cultures, serial troponins, serial lactate and a stat magnesium. 2. I will start her on intravenous Lasix and will resume her home medications of sotalol, Eliquis, spironolactone and Entresto and follow up urine output. I will keep her on BiPAP and will transition her to nasal cannula as tolerated. 3. I will start her on intravenous levofloxacin and follow up final blood culture results. 4. I will resume her insulin and would add canagliflozin for diabetes mellitus associated with congestive heart failure. [facility] the [facility]. Plan of care was extensively discussed with the patient. All of her questions were answered. cc: Aris Solis MD
[2019-09-12] MEDS: HUMALOG SUBQ SCH ×4 (10:34→20:45)
[2019-09-12] MEDS: LIPITOR PO SCH (10:35)
[2019-09-12] MEDS: ALDACTONE PO SCH (10:45)
[2019-09-12] MEDS: BETAPACE PO SCH ×2 (10:45→20:42)
[2019-09-12] MEDS: ELIQUIS PO SCH ×2 (10:46→20:42)
[2019-09-12] MEDS: ENTRESTO 49 MG-51 MG TABLET PO SCH ×2 (10:46→20:42)
[2019-09-12] MEDS: LASIX IV SCH (16:13)
[2019-09-13] MEDS: LASIX IV SCH ×2 (04:07→15:43)
[2019-09-13] MEDS: PROTONIX PO SCH (06:08)
[2019-09-13] MEDS: HUMALOG SUBQ SCH ×4 (06:08→21:01)
[2019-09-13 06:51] LABS: BASO# 0.01 X1000 (0.0-0.2); BASO% 0.1 % (0.0-0.8); EOS# 0.17 X1000 (0.0-0.7); EOS% 1.8 % (0.0-10.0); HEMATOCRIT 41.7 % (37.0-47.0); HEMOGLOBIN 13.2 g/dL (12.0-16.0); LYMPH# 2.25 X1000 (1.2-3.4); LYMPH% 23.5 % (20.5-51.1); MCH 27.4 PG (27-31); MCHC 31.7 g/dL (33-37); MCV 86.7 FL (81-99); MONO# 0.74 X1000 (0.11-0.59); MONO% 7.7 % (1.7-9.3); MPV 11.3 FL (7.4-10.4); NEUT# 6.42 X1000 (1.4-6.5); NEUT% 66.9 % (42.2-75.2); PLT 278 X1000 (130-400); RBC 4.81 XMIL (4.2-5.4); RDW 13.3 % (11.5-14.5); WBC 9.59 X1000 (4.8-10.8)
[2019-09-13 07:24] LABS: AGAP 11; ALB/GLOB RATIO 1.8; ALBUMIN 3.6 g/dL (3.5-5.0); ALKALINE PHOSPHATASE 114 U/L (32-104); BUN 14 mg/dL (8-22); CALCIUM 8.6 mg/dL (8.8-10.2); CHLORIDE 101 mmol/L (98-107); COSMO 289; CREATININE 0.5 mg/dL (0.5-0.9); ESTIMATED GFR > 60; GLUCOSE 100 mg/dL (70-104); GOT 34 U/L (10-30); GPT 29 U/L (10-36); POTASSIUM 3.6 mmol/L (3.5-5.1); SODIUM 145 mmol/L (136-145); TCO2 33 mmol/L (25-35); TOTAL BILIRUBIN 1.54 mg/dL (0.20-1.00); TOTAL PROTEIN 5.6 g/dL (6.3-8.3)
[2019-09-13] MEDS ORDERED: LEVAQUIN 500 MG/D5W 500 MG/100 ML IVPB IV SCH (09:00)
[2019-09-13] MEDS: INVOKANA PO SCH (10:02)
[2019-09-13] MEDS: MAGNESIUM SULFATE 2 GM/S.W.I. 2 GM/50 ML IVPB IV SCH ×2 (10:02→11:30)
[2019-09-13] MEDS: LIPITOR PO SCH (10:03)
[2019-09-13] MEDS: ELIQUIS PO SCH ×2 (10:03→21:00)
[2019-09-13] MEDS: ENTRESTO 49 MG-51 MG TABLET PO SCH ×2 (10:03→21:00)
[2019-09-13] MEDS: ALDACTONE PO SCH (10:03)
--- NOTE | 2019-09-13 11:31 | PROGRESS NOTE ---
DATE: 09/13/2019 INTERVAL HISTORY: She was able to be transitioned from BiPAP to simple nasal cannula. SUBJECTIVE: Ms. Chaudhry denies new complaints. She is feeling much better. She denies any chest pain. She is still feeling a little short of breath. She denies any palpitation. She states that she has been feeling a little weak since a few days to an extent that she fell down on the day of presentation, and that is why she was brought to the hospital. She denies increasing cough at home, except she was feeling a little chilly. She could not really provide me enough history to suggest if she had pneumonia. We discussed about heart failure. We discussed the need for diuretics. I answered all of her questions. CURRENT VITALS: Temperature 97.4 degrees, pulse 75, respiratory 18, blood pressure 103/31. She is saturating 95% on 2 L nasal cannula. PHYSICAL EXAMINATION: General: She is not in any acute distress. Oral cavity: Moist. Lungs: She has decreased air entry with inspiratory crackles bilateral in infrascapular region. Cardiovascular: S1, S2 normal. Regular. No murmur, rub, or gallop. Abdomen: Soft, nontender. Extremities: Only mild lower extremity edema. Neurologic: She is alert and oriented x3. LABS: Suggestive of resolution of leukocytosis. Hemoglobin is 13.2. She has a normal BUN, creatinine. Her blood glucose is 107. She does have hypomagnesemia, which is currently being repleted. Troponin yesterday was showing a flat trend of around 29. MICROBIOLOGY: No positive microbiological data. Blood cultures are still in lab. ASSESSMENT AND PLAN: 1. Acute hypoxic hypercapnic respiratory failure due to acute pulmonary edema and bilateral pleural effusion due to acute combined systolic and diastolic congestive heart failure exacerbation. Continue intravenous diuretics. I am holding sotalol at the moment considering her prolongation on QTc interval and repeat the EKG before reinstituting sotalol. Continue home Entresto. 2. Suspected sepsis due to left lower lobe pneumonia. I will hold the antibiotics since she had rapid improvement in leukocytosis, and she does not have any definitive features in terms of detailed history to suggest pneumonia. I will follow up blood culture results. She has not had any fever. 3. Elevated troponin in the setting of acute congestive heart failure, showing flat trend. 4. History of paroxysmal atrial fibrillation. I will continue her sotalol once I get the repeat electrocardiogram, as well as continue apixaban. 5. History of insulin-dependent diabetes mellitus type 2. Start patient on canagliflozin, and I will continue her on sliding scale insulin based on her blood sugar levels. 6. Others. She has history of obstructive sleep apnea, cerebrovascular accident and chronic migraine. I will resume her home medication as tolerated. DISPOSITION: Monitor patient inside PVC unit. Plan of care discussed with her. I will also add physical therapy considering she had a fall prior to presentation. All of patient's questions have been answered. cc: Aris Solis MD
--- NOTE | 2019-09-13 12:22 | EKG Report ---
Test Performed on : 09/13/2019 06:50:20 AM Test Reason : Follow up heart rhythm Blood Pressure : / mmHG Vent. Rate : 075 BPM Atrial Rate : 075 BPM P-R Int : 150 ms QRS Dur : 136 ms QT Int : 522 ms P-R-T Axes : 061 003 091 degrees QTc Int : 582 ms Critical Test Result: Long QTc Sinus rhythm. with marked sinus arrhythmia. Nonspecific intraventricular block Nonspecific T wave abnormality Abnormal ECG When compared with ECG of 12-SEP-2019 05:55, (Unconfirmed) premature ventricular complexes. are no longer present Vent. rate has decreased BY 41 BPM T wave inversion now evident in Anterior leads T wave inversion no longer evident in Lateral leads Confirmed by Otot Garner MD ([id number]) on 09/16/2019 9:36:13 PM
--- NOTE | 2019-09-13 12:22 | EKG Report ---
Test Performed on : 09/13/2019 11:17:06 AM Test Reason : Follow up heart rhythm Blood Pressure : / mmHG Vent. Rate : 069 BPM Atrial Rate : 069 BPM P-R Int : 158 ms QRS Dur : 140 ms QT Int : 524 ms P-R-T Axes : 045 -23 022 degrees QTc Int : 561 ms Normal sinus rhythm. Left bundle branch block Abnormal ECG When compared with ECG of 13-SEP-2019 06:50, (Unconfirmed) Nonspecific T wave abnormality now evident in Inferior leads Confirmed by Grace Bell MD ([id number]) on 09/18/2019 6:39:29 AM
[2019-09-13] MEDS: LOPRESSOR PO SCH ×2 (15:43→21:00)
[2019-09-13] MEDS ORDERED: TYLENOL PO PRN (20:24)
[2019-09-13] MEDS: MAG-OX PO SCH (21:00)
[2019-09-14] MEDS: LASIX IV SCH (05:00)
[2019-09-14] MEDS: PROTONIX PO SCH (06:39)
[2019-09-14] MEDS: HUMALOG SUBQ SCH ×4 (06:39→21:42)
[2019-09-14 06:43] LABS: AGAP 11; BUN 16 mg/dL (8-22); CALCIUM 8.8 mg/dL (8.8-10.2); CHLORIDE 99 mmol/L (98-107); COSMO 288; CREATININE 0.6 mg/dL (0.5-0.9); ESTIMATED GFR > 60; GLUCOSE 173 mg/dL (70-104); MAGNESIUM 2.3 mg/dL (1.5-2.7); POTASSIUM 3.5 mmol/L (3.5-5.1); SODIUM 142 mmol/L (136-145); TCO2 32 mmol/L (25-35)
[2019-09-14] MEDS: LIPITOR PO SCH (09:20)
[2019-09-14] MEDS: ELIQUIS PO SCH ×2 (09:20→21:41)
[2019-09-14] MEDS: MAG-OX PO SCH ×2 (09:20→21:41)
[2019-09-14] MEDS: INVOKANA PO SCH (09:24)
[2019-09-14] MEDS: LOPRESSOR PO SCH (09:56)
[2019-09-14] MEDS: ENTRESTO 49 MG-51 MG TABLET PO SCH (09:56)
[2019-09-14] MEDS: ALDACTONE PO SCH (09:56)
--- NOTE | 2019-09-14 12:04 | PROGRESS NOTE ---
DATE: 09/14/2019 INTERVAL HISTORY: No acute events overnight. SUBJECTIVE: Ms. Chaudhry is denying any complaints except that she has been coughing and bringing up some expectoration. Her shortness of breath has significantly improved. She denies any nausea, vomiting, or abdominal pain. We discussed about taking the urine catheter out. VITALS: Temperature 97.9 degrees, pulse 62, respiratory rate 18, her blood pressure is 87/43. She is saturating 94% on 2 L nasal cannula. PHYSICAL EXAMINATION: She is not in acute distress. Oral cavity is moist. Air entry bilaterally equal. No wheeze, rhonchi, or crackles except mild crackles in the infrascapular region which have improved. Cardiovascular: S1, S2 normal. Regular. No murmur, rub, or gallop. Abdomen: Soft, nontender. No lower extremity edema. She is alert and oriented x3. She is able to engage in meaningful conversation. Input and output suggest -7 L since presentation. LABORATORY DATA: No CBC today. BMP suggestive of BUN of 16, creatinine of 0.6. No positive blood culture data. Sputum culture has been collected. ASSESSMENT AND PLAN: 1. Acute hypoxic, hypercapnic respiratory failure due to acute pulmonary edema and bilateral pleural effusion due to acute combined systolic and diastolic congestive heart failure exacerbation, due to likely noncompliance with medication. She appears to have diuresed . I will change her intravenous Lasix to oral Lasix. I am discontinuing her Entresto at the moment considering her hypotension. I will continue her spironolactone and sotalol. 2. Suspected sepsis due to left lower lobe pneumonia. She has not had any fever. I will follow up with sputum culture. Resume antibiotics until culture result comes back. 3. Prolonged QTc: I held her Sotalol yesterday. However, she also had hypoMagnesemia. After her Magnesium has been repleted, her QTc came down. I will resume Sotalol at a lower dose and follow up with another EKG tomorrow. 3. History of paroxysmal atrial fibrillation. Continue sotalol and apixaban. 4. History of insulin-dependent diabetes mellitus type 2. Continue patient on canagliflozin and sliding scale insulin. Currently, her blood glucose has been within acceptable range. 5. Others. She has a history of obstructive sleep apnea, cerebrovascular accident, chronic migraine, chronic hypoxic respiratory failure on home 2 L nasal cannula which I will continue and monitor. 6. Disposition. I will monitor the patient in PVC and I am anticipating discharge in next 24 hours based on her QTc on sotalol. Plan of care discussed with her and all of her questions have been answered. cc: Aris Solis MD MTDD
[2019-09-14] MEDS: DOXYCYCLINE PO SCH ×2 (16:22→21:41)
--- NOTE | 2019-09-14 17:11 | EKG Report ---
Test Performed on : 09/14/2019 06:26:06 AM Test Reason : Follow up QTc Blood Pressure : / mmHG Vent. Rate : 057 BPM Atrial Rate : 057 BPM P-R Int : 170 ms QRS Dur : 136 ms QT Int : 514 ms P-R-T Axes : 050 -32 078 degrees QTc Int : 500 ms Sinus bradycardia. Left axis deviation Left bundle branch block Nonspecific T wave abnormality Abnormal ECG When compared with ECG of 13-SEP-2019 11:17, (Unconfirmed) Nonspecific T wave abnormality no longer evident in Inferior leads Nonspecific T wave abnormality has replaced inverted T waves in Anterior leads Nonspecific T wave abnormality now evident in Lateral leads QT has shortened Confirmed by Otto Garner MD ([id number]) on 09/16/2019 9:42:35 PM
[2019-09-14] MEDS ORDERED: BETAPACE PO SCH (21:00)
--- NOTE | 2019-09-14 21:12 | EKG Report ---
Test Performed on : 09/14/2019 9:00:07 PM Test Reason : Rhythm change Blood Pressure : / mmHG Vent. Rate : 083 BPM Atrial Rate : 083 BPM P-R Int : 172 ms QRS Dur : 138 ms QT Int : 430 ms P-R-T Axes : 034 -30 083 degrees QTc Int : 505 ms Sinus rhythm. with occasional premature ventricular complexes. Left axis deviation Left ventricular hypertrophy with QRS widening and repolarization abnormality Abnormal ECG When compared with ECG of 14-SEP-2019 06:26, (Unconfirmed) premature ventricular complexes. are now present Left bundle branch block is no longer present Confirmed by Otto Garner MD ([id number]) on 09/16/2019 9:47:19 PM
[2019-09-14] MEDS: BETAPACE PO SCH (21:43)
[2019-09-14 21:51] LABS: AGAP 14; BUN 18 mg/dL (8-22); CALCIUM 9.2 mg/dL (8.8-10.2); CHLORIDE 94 mmol/L (98-107); COSMO 283; CREATININE 0.7 mg/dL (0.5-0.9); ESTIMATED GFR > 60; GLUCOSE 195 mg/dL (70-104); POTASSIUM 3.9 mmol/L (3.5-5.1); SODIUM 138 mmol/L (136-145); TCO2 30 mmol/L (25-35)
[2019-09-15] MEDS: HUMALOG SUBQ SCH ×3 (06:14→16:02)
[2019-09-15 06:30] LABS: BASO# 0.02 X1000 (0.0-0.2); BASO% 0.2 % (0.0-0.8); EOS# 0.22 X1000 (0.0-0.7); EOS% 2.5 % (0.0-10.0); HEMATOCRIT 39.4 % (37.0-47.0); HEMOGLOBIN 12.6 g/dL (12.0-16.0); LYMPH# 2.39 X1000 (1.2-3.4); LYMPH% 27.3 % (20.5-51.1); MCH 27.3 PG (27-31); MCV 85.5 FL (81-99); MONO% 9.1 % (1.7-9.3); NEUT# 5.34 X1000 (1.4-6.5); NEUT% 60.9 % (42.2-75.2); PLT 287 X1000 (130-400); RBC 4.61 XMIL (4.2-5.4); WBC 8.77 X1000 (4.8-10.8)
[2019-09-15] MEDS: PROTONIX PO SCH (06:40)
[2019-09-15 06:47] LABS: AGAP 12; BUN 20 mg/dL (8-22); CALCIUM 9.2 mg/dL (8.8-10.2); CHLORIDE 100 mmol/L (98-107); COSMO 283; CREATININE 0.5 mg/dL (0.5-0.9); ESTIMATED GFR > 60; GLUCOSE 142 mg/dL (70-104); POTASSIUM 4.1 mmol/L (3.5-5.1); SODIUM 139 mmol/L (136-145); TCO2 27 mmol/L (25-35)
--- NOTE | 2019-09-15 07:35 | EKG Report ---
Test Performed on : 09/15/2019 06:54:12 AM Test Reason : Follow up QTc Blood Pressure : / mmHG Vent. Rate : 068 BPM Atrial Rate : 068 BPM P-R Int : 174 ms QRS Dur : 138 ms QT Int : 450 ms P-R-T Axes : 060 -36 094 degrees QTc Int : 478 ms Sinus rhythm. with occasional premature ventricular complexes. Left axis deviation Left bundle branch block Abnormal ECG When compared with ECG of 14-SEP-2019 21:00, (Unconfirmed) Left bundle branch block is now present Confirmed by Otto Garner MD ([id number]) on 09/16/2019 9:53:37 PM
[2019-09-15] MEDS: MAG-OX PO SCH (08:45)
[2019-09-15] MEDS: ALDACTONE PO SCH (08:46)
[2019-09-15] MEDS: ELIQUIS PO SCH (08:46)
[2019-09-15] MEDS: LIPITOR PO SCH (08:46)
[2019-09-15] MEDS: INVOKANA PO SCH (08:46)
[2019-09-15] MEDS: DOXYCYCLINE PO SCH (08:46)
[2019-09-15] MEDS: BETAPACE PO SCH (08:46)
[2019-09-15] MEDS ORDERED: LASIX PO SCH (09:00)
[2019-09-15 11:59] VITALS: BP 139/70
--- NOTE | 2019-09-16 08:12 | DISCHARGE SUMMARY ---
ADMISSION DATE: 09/12/2019 DISCHARGE DATE: 09/15/2019 DISCHARGE DISPOSITION: Home on home oxygen, which is chronic. DISCHARGE CONDITION: Hemodynamically stable. She denies any chest pain. She is not short of breath at rest. We discussed about change in the insulin regimen, as well as addition of canagliflozin to her regimen. We also discussed about following up with a component assembler supervisor and completion of antibiotics. She understood it. DISCHARGE DIAGNOSES: 1. Acute hypoxic hypercapnic respiratory failure. 2. Acute pulmonary edema and bilateral pleural effusion. 3. Combined systolic and diastolic congestive heart failure exacerbation. 4. Noncompliance with medication. 5. Sepsis due to left lower lobe pneumonia. 6. Prolonged QTc, likely because of hypomagnesemia. 7. Insulin dependent diabetes mellitus type 2 with uncontrolled hyperglycemia. OTHER DIAGNOSES: 1. History of paroxysmal atrial fibrillation. 2. History of insulin dependent diabetes mellitus type 2. 3. History of obstructive sleep apnea. 4. History of chronic hypoxic respiratory failure on home 2 liters nasal cannula. 5. History of chronic obstructive pulmonary disease with active smoking for 6 years, which she quit 25 years ago, but prolonged secondhand smoke exposure. DISCHARGE MEDICATIONS: 1. Apixaban 5 mg b.i.d. for atrial fibrillation. 2. Entresto 24/26 mg tablet 1 tablet b.i.d. 3. Atorvastatin 10 mg daily. 4. Pantoprazole 40 mg daily. 5. Montelukast 10 mg daily. 6. Symbicort 160/4.5 mcg inhaler inhaled b.i.d. 7. Topamax 50 mg b.i.d. 8. Cholecalciferol 2000 mg daily. 9. Doxycycline 100 mg b.i.d., 8 tablets. 10. Canagliflozin 100 mg daily, 30 tablets with 1 refill. 11. Insulin glargine 25 units subcutaneously daily. The dose has been decreased from 50 units. 12. Insulin regular 5 units with meals, dose has been decreased from 10 units. 13. Furosemide 40 mg daily, 30 tablets. 14. Atorvastatin 10 mg daily. 15. Sotalol 120 mg b.i.d. 16. Spironolactone 12.5 mg daily. The dose has been decreased from 25 mg due to hypotension. PHYSICAL EXAMINATION: Vital Signs: At the time of discharge, temperature 98.1 degrees, pulse 65, respiratory rate 16, blood pressure 119/78, saturating 96% on 2 liters nasal cannula. General: On physical exam, not in acute distress. HEENT: Oral cavity is moist. Respiratory: No wheeze, rhonchi, crackles. Cardiac: Normal. No murmur, rub, or gallop. Abdomen: Soft, nontender. Extremities: No edema. Neurologic: She is alert and oriented x3. She is able to engage in a conversation. She was able to go to the bathroom. LABORATORY DATA: At the time of discharge, WBC 8000, hemoglobin 12.6, platelet 287,000. Sodium 139, potassium 4.1, BUN 20, creatinine 0.5 blood glucose 142. Her proBNP improved from 2600 to 198. Microbiology, blood culture, influenza screen, and sputum culture so far have been unremarkable. IMAGING DURING HOSPITAL ADMISSION: Chest x-ray on presentation had cardiomegaly with pulmonary edema and effusion consistent with congestive heart failure. Electrocardiogram on presentation had a sinus tachycardia with frequent premature ventricular complexes, left axis deviation, left bundle-branch block. During repeat EKG, she did have a prolonged QTc which was as high as 582, which was thought to be in the setting of hypomagnesemia, with magnesium levels down to 1.3. After magnesium was repleted and her sotalol was briefly held, her QTc improved. At the time of discharge, the QTc is 478. HOSPITAL COURSE SUMMARY: Ms. 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 She came in with chief complaint of shortness of breath, which was progressive, of about 5 to 7 days' duration. Her shortness of breath became worse to an extent. On the day of presentation, she was not able to stand by herself because of shortness of breath and she actually fell down, so the family had to call EMS. When the EMS arrived, her oxygen saturation was 60%, which improved to 90% on 6 liters nasal cannula, so she was brought into the emergency room where she was started on BiPAP. Her initial vitals were 97.9 of temperature, pulse of 107, respiratory rate of 32, and oxygen saturation on BiPAP of 98%. She also had leukocytosis with WBC of 17,000, elevated proBNP of 2600, so the hospitalist team was consulted for further management. The patient was diagnosed with acute hypoxic hypercapnic respiratory failure on chronic hypoxic respiratory failure due to acute pulmonary edema and bilateral pleural effusions due to CHF exacerbation, as well as sepsis due to left lower lobe pneumonia. She was diuresed with intravenous furosemide and started on antibiotics, following which she improved. At the time of discharge, she is breathing well on her baseline 2 liters nasal cannula. She will be discharged on oral antibiotics. Considering her congestive heart failure and uncontrolled diabetes, she was started on canagliflozin, which controlled her blood sugars well. At the time of discharge, she was advised to have her home insulin dose and have a regular followup with regular physician and component assembler supervisor. There was 25 minutes were spent discharging this patient. Plan of care was extensively discussed with the patient. All of her questions were answered. Inside the hospital, she also had an episode of prolonged QTc of more than 580, which was thought to be related to hypomagnesemia when her magnesium was 1.3. Her sotalol was briefly held, and magnesium was repleted and sotalol was started back, and she was tolerating it well without any prolongation of QTc. cc: Aris Solis MD [id number]
== END 2019-09-15 16:27 | disposition home or self-care (01) | DRG 871 ==
LOC: ED 05:52 → 2N 08:38
PROVIDERS: ATTEND Internal Medicine